=== PATIENT | female | born 1940 | race Caucasian/White ===

== ENCOUNTER 2017-11-15 12:24 | Inpatient (IN) | payer MEDICARE ==
[~2017-11-15] VITALS: Ht 157.4 cm; Wt 57.2 kg
--- NOTE | ~2017-11-15 | PR ---
[place], [place] PROGRESS NOTE NAME: LO NEVES UNIT #: [id number] ROOM: 316 DOCTOR: OVIDIO TAFOYA MD BIRTHDATE: [birth year] DOS: 11/21/2017 CHIEF COMPLAINT: "The patient just shook her head." SUMMARY OF THE VISIT: The patient was attempted to be interviewed as she was resting quietly in bed. I made multiple attempts to engage her and the most I was able to get was her to shake her head no. Nurses report that she has been episodically communicative and at times has been what appears to be deliberately not talking. She is not necessarily eating or drinking well, although her complete metabolic panel is fairly unremarkable. MENTAL STATUS: It is limited due to her lack of participation. She does appear somewhat depressed and more despondent. PLAN: I will go ahead and discontinue her oral Risperdal as she has been given the Invega Sustenna, renew Ativan p.r.n. in case she requires, start her on Remeron as an antidepressant. Engage in individual and alba milieu activity, returning to the least restrictive environment when stable. OVIDIO TAFOYA MD CM:PNTRANS [id number] OVIDIO TAFOYA MD 11/21/17 1021 interface
--- NOTE | ~2017-11-15 | PR ---
[place], [place] PROGRESS NOTE NAME: LO NEVES UNIT #: [id number] ROOM: 316 DOCTOR: BOBBI PONCE MD BIRTHDATE: [birth year] DOS: 11/19/2017 SUBJECTIVE: The patient seen and spoke with the staff. Per staff, the patient is very disorganized. Her UA came back positive with E. coli. Medical team is following her. She is not eating properly also. The patient was in her room in a Beth chair. She was smiling and talking nonsensical. She said that she is doing very good, not seems to be in any distress. She was not aware of her surrounding. MENTAL STATUS EXAMINATION: The patient was pleasant and cooperative. Described her mood as "very good." Affect was bright, smiling. Thought processes with confabulation. She denied auditory or visual hallucination. No delusion or paranoia noted. Insight and judgment impaired. PLAN: 1. Continue current medication and care. 2. Continue redirection. 3. Medical team is following for her infection issues. BOBBI PONCE MD CM:PNTRANS 50 [phone] BOBBI PONCE MD 11/19/172105 interface
--- NOTE | ~2017-11-15 | PR ---
[place], [place] PROGRESS NOTE NAME: LO NEVES UNIT #: [id number] ROOM: 316 DOCTOR: OVIDIO TAFOYA MD BIRTHDATE: [birth year] DOS: 11/20/2017 CHIEF COMPLAINT: The patient was so somnolent she only opened her eyes and did not speak. SUMMARY OF THE VISIT: The patient was resting quietly in bed. I on multiple occasions attempted to arouse her. She did open her eyes one time, but did not speak to me. The patient did receive intramuscular Geodon in the wee hours of the morning due to severe mood lability and verbal and physical combativeness. While the medication did work, subsequently there has been a level of somnolence now. Nurses report that her behavior has continued to be labile. She has bouts of episodic agitation and is not necessarily consistently compliant with her care. MENTAL STATUS: It is limited now due to her overall level of somnolence. PLAN: I will go ahead and maximize her Exelon patch from 9.5 mg daily to 13.3 mg daily in an effort to improve or maintain ADLs, behavior and cognition. I will move up her secondary loading dose of Invega Sustenna 156 mg IM for 11/22 rather than 11/23, trying to get blood levels that are more therapeutic to decrease some of this mood lability and combativeness. We will attempt to engage in individual and alba milieu activity, returning to the least restrictive environment when psychiatrically stable. OVIDIO TAFOYA MD CM:PNTRANS [id number] OVIDIO TAFOYA MD 11/20/17 0908 interface
--- NOTE | ~2017-11-15 | PR ---
[place], [place] PROGRESS NOTE NAME: LO NEVES UNIT #: [id number] ROOM: 316 DOCTOR: OVIDIO TAFOYA MD BIRTHDATE: [birth year] DOS: 11/22/2017 CHIEF COMPLAINT: "Oh yes hello there, how are you." SUMMARY OF THE VISIT: The patient was interviewed as she was resting in bed. She was eating most of her breakfast tray with assistance from a male bung sewer. She engaged in conversation that was rather disjointed and fragmented, but she was pleasant and smiled through the entire conversation. She was much more engaging than she had been yesterday and seemed a little bit more alert and pleasant than she has been for some time. She seems to be tolerating the current medication regimen well and I see no sedation, somnolence, extrapyramidal symptoms or tardive dyskinesia. MENTAL STATUS: She is alert and oriented to self only. It is unclear if she realizes she is in the hospital let alone [facility] and she is certainly not oriented to time. Her responses are short, simple, pleasant, but very disjointed and fragmented, often times nonsensical. She does process extremely slowly. Short term memory is exceedingly poor. PLAN: I will renew her p.r.n. Ativan in case she requires intervention. It does not appear that the Invega Sustenna secondary loading dose of 156 mg IM will be available today, so I will cancel this and plan on attempting to do the loading on November 23. We will continue to engage her in individual and alba milieu activity with the ultimate plan to return to the least restrictive environment when psychiatrically stable. OVIDIO TAFOYA MD CM:PNTRANS [id number] OVIDIO TAFOYA MD 11/22/17 1010 interface
--- NOTE | ~2017-11-15 | PR ---
[place], [place] PROGRESS NOTE NAME: LO NEVES UNIT #: [id number] ROOM: 316 DOCTOR: BOBBI PONCE MD BIRTHDATE: [birth year] DOS: 11/25/2017 SUBJECTIVE: The patient seen and spoke with the staff. Per staff, no behavioral problems or issues. She is doing better. She is eating also but she is pleasantly confused. The patient was in her room in the Beth chair. She was not in any distress. She started smiling. She looks very happy. She said that she is doing fine, but then went on to talk that does not make any sense. She was not in any distress. MENTAL STATUS EXAMINATION: The patient was pleasant and cooperative. She was alert, but not oriented to date and month and the year. She described her mood as "fine." Affect was mood congruent, happier. Thought processes with confabulation. She denied auditory or visual hallucination. No overt delusions or paranoia noted. She is not a threat to herself or anyone else. Insight and judgment impaired. PLAN: 1. Continue current medication and care. 2. Continue redirection. 3. Supportive care. BOBBI PONCE MD CM:PNTRANS [id number] BOBBI PONCE MD 11/25/17 5039 interface
--- NOTE | ~2017-11-15 | PR ---
[place], [place] PROGRESS NOTE NAME: LO NEVES UNIT #: [id number] ROOM: 316 DOCTOR: BOBBI PONCE MD BIRTHDATE: [birth year] DOS: 11/26/2017 SUBJECTIVE: The patient seen and spoke with the staff. Per staff, the patient is doing good, taking her medication and also eating well. Per staff, reportedly the patient is eating on her own. The patient was seen in her room. She was in the day area. She looks pretty happy. She is smiled at me and said that she is doing well. She mentioned that this is December but then went on to tangent and incoherent talks. MENTAL STATUS EXAMINATION: Pleasant, cooperative. Described his mood as "good." Affect was mood congruent. Thought processes with confabulation. She denied auditory or visual hallucination. No overt delusion or paranoia noted. She denied suicidal ideation, intent or plan. She also denied homicidal ideation, intent or plan. Insight and judgment impaired. PLAN: 1. Continue current medication and care. 2. Continue redirection. 3. Supportive care. BOBBI PONCE MD CM:PNTRANS 52 [phone] BOBBI PONCE MD 11/26/172238 interface
--- NOTE | ~2017-11-15 | PR ---
[place], [place] PROGRESS NOTE NAME: LO NEVES UNIT #: [id number] ROOM: 316 DOCTOR: OVIDIO TAFOYA MD BIRTHDATE: [birth year] DOS: 11/17/2017 CHIEF COMPLAINT: "Oh yes that is over there. It is okay. I don't need anything." SUMMARY OF THE VISIT: The patient was interviewed as she was sitting in the dining area, trying to eat breakfast. She had only about a quarter of her breakfast touched and stated she did not want anymore. She attempted to engage in superficial conversation, but at times, it drifted into nonsensical gibberish. She smiled readily and nodded in approval. Nurses report that she is episodically compliant and noncompliant with her medicines, but they have gotten several doses of the Risperdal M-Tab in her and she has tolerated it well without any apparent extrapyramidal symptoms, tardive dyskinesia, sedation or somnolence. She still though is episodically agitated and combative. MENTAL STATUS: She is alert and oriented to self. It is unclear and doubtful if she knows she is in the hospital and she is certainly not oriented to time. Mood still is labile. Affect inappropriate. Speech rate and pattern is disjointed and disconnected. She does process slowly and short term memory is exceedingly poor. PLAN: I will go ahead and increase the Exelon patch from 4.6 to 9.5 mg a day, targeting a 13.3-mg daily dose. Her vitamin D level on admission was subtherapeutic at 25.5, so I will augment with vitamin D 50,000 International Units weekly. I will load with Invega Sustenna 156 mg IM on 11/18/2017 and reload with a secondary dose of 156 on 11/23/2017, engage in individual and alba milieu activity, returning to the least restrictive environment when stable. OVIDIO TAFOYA MD CM:PNTRANS 7 01 OVIDIO TAFOYA MD 11/17/172058 interface
--- NOTE | ~2017-11-15 | PR ---
[place], [place] PROGRESS NOTE NAME: LO NEVES UNIT #: [id number] ROOM: 316 DOCTOR: OVIDIO TAFOYA MD BIRTHDATE: [birth year] DOS: 11/23/2017 CHIEF COMPLAINT: "Oh good morning. No "I don't want breakfast." SUMMARY OF THE VISIT: The patient was interviewed as she was resting quietly in bed. She did engage in brief conversation. She smiled readily, but did not turn to make good eye contact. Nurses report that she has been more compliant with medications and with eating and her intake of fluids is also improved. She has tolerated the current medication regimen well. MENTAL STATUS: She is alert and oriented to self, possibly hospital, but not place. Mood does seem to be fairly euthymic. Affect is bright and pleasant. There is no jody or hypomania. There is no overt agitation or aggression. There are no psychotic symptoms noted. Memory remains poor. PLAN: We will continue her current psychotropic regimen, attempt to reload her with Invega Sustenna and then monitor over the next 24 hours for both benefits and the possibility of side effects. Looking, especially for any extrapyramidal symptoms. We will discharge then to the least restrictive environment when psychiatrically stable. OVIDIO TAFOYA MD CM:PNTRANS [id number] OVIDIO TAFOYA MD 11/23/17 0938 interface
--- NOTE | ~2017-11-15 | WRIGHTHP ---
[place], [place] PATIENT HISTORY AND PHYSICAL EXAM NAME: LO NEVES UNIT #: [id number] ROOM: 316 DOCTOR: OVIDIO TAFOYA MD BIRTHDATE: [birth year] DOS: 11/16/2017 INITIAL PSYCHIATRIC EVALUATION CHIEF COMPLAINT: "Oh, hi there, how are you today?" HISTORY OF PRESENT ILLNESS: This is a 77-year-old white female who resides at [facility]. The patient is admitted now to the [facility] due to increased verbal and physical aggression. The patient has been increasingly combative and resistive to care. These behaviors have been escalating since May 2017. She has now become completely noncompliant with all aspects of care, refusing her medications both medical and psychiatric. When attempts are made to redirect her, she has been hitting, kicking and scratching staff. Despite attempts to alter medications, the patient has been increasingly more out of control. The patient also has been responding to visual hallucinations, stating that there are bugs in the room and that the bugs were crawling on her legs causing her to be very agitated and scratching herself. She is admitted now to rule out organic factors, to stabilize on medication, to engage in individual and alba milieu activity, returning to the least restrictive environment when psychiatrically stable. PAST MEDICAL HISTORY: Remarkable for congestive heart failure, hypothyroidism, CVA, hypertension and a history of Alzheimer's dementia. MENTAL STATUS: The patient is alert and oriented to self, possibly place, although it is doubtful, not to time. Mood for the most part was euthymic. Her responses were on target half of the time and at other times she responded nonsensically. Her speech rate and pattern were within normal limits. There was no significant hypomania or jody. She did seem to be somewhat delusional. There was no agitation; however, directed towards me. She did process slowly and at times was not able to process simple commands. Short term memory is exceedingly poor. DIAGNOSIS: Brief psychotic disorder. PLAN: At this point, I will try to simplify her medication regimen as much as possible. I will discontinue her multivitamin, her vitamin D, her thiamine, her Depakote, her Colace and her Aricept. In its place, I will start Exelon patch, which at least we can attempt to get on her back without having to worry about her taking oral medication. We will order Risperdal M-Tab 1 mg b.i.d. to break the psychosis and stabilize her mood lability. We will attempt to engage her in individual and alba milieu activity with the ultimate plan to return to the least restrictive environment when psychiatrically stable. [place], [place] PATIENT HISTORY AND PHYSICAL EXAM NAME: LO NEVES UNIT #: [id number] ROOM: 316 DOCTOR: OVIDIO TAFOYA MD BIRTHDATE: [birth year] OVIDIO TAFOYA MD CM:HISPHYS:PATIENT HISTORY AND PHYSICAL EXAMINATION [id number] OVIDIO TAFOYA MD 11/16/17 1050 interface
--- NOTE | ~2017-11-15 | PR ---
[place], [place] PROGRESS NOTE NAME: LO NEVES UNIT #: [id number] ROOM: 316 DOCTOR: BOBBI PONCE MD BIRTHDATE: [birth year] DOS: 11/18/2017 SUBJECTIVE: The patient seen and spoke with the staff. Per staff, patient is not eating and drinking well, it is very sporadic, that is the same in terms of her medication also. Reportedly, she had UTI and currently getting antibiotic. The patient was in the Beth chair. She was smiling, talking nonsensical. She was listening to the music, seems to be very pleasant, not in any acute distress. She was not able to answer my question in any meaningful way. MENTAL STATUS EXAMINATION: The patient was pleasant and cooperative. She was alert, but not oriented to day, date, month and year. She described her mood as "okay." Affect was brighter broad range. Thought process disorganized. Denied auditory or visual hallucination. She denied any suicidal ideation, intent or plan. She also denied homicidal ideation, intent or plan. Insight and judgment impaired. ASSESSMENT: 1. Brief psychotic disorder. 2. Dementia with psychotic feature. PLAN: 1. Continue current medication and care. 2. We will start her I's and O's. 3. Continue redirection. 4. Encourage p.o. intake. BOBBI PONCE MD CM:PNTRANS [phone] BOBBI PONCE MD 11/18/17 232 interface
--- NOTE | ~2017-11-15 | DS ---
[place], [place] DISCHARGE SUMMARY NAME: OL NEVES UNIT #: [id number] ROOM: 316 DOCTOR: OVIDIO TAFOYA MD BIRTHDATE: [birth year] DOS: 11/27/2017 CHIEF COMPLAINT: "Oh Hi there, how are you today." HISTORY OF PRESENT ILLNESS: This is a 77-year-old white female who resides at [facility]. The patient is now admitted to the [facility] unit due to increased verbal and physical aggression. The patient has become increasingly combative and resistive to care. She has been escalating since May 2017. She is now completely noncompliant with all aspects of care, refusing all medications, both medical and psychiatric. She has been refusing to eat or drink. She has not attended to her ADLs. Attempts to redirect have led to her hitting, kicking and scratching at staff. Attempts to alter medications have been unsuccessful and she has become increasingly more out of control representing a significant risk of harm to self and others. The patient has also been responding to visual hallucinations stating that there are bugs in her room and that the bugs were crawling on her legs. She is admitted now to rule out organic factors, to stabilize on medication, to engage in individual and alba milieu activity, discharging then to the least restrictive environment when psychiatrically stable. PAST MEDICAL HISTORY: Remarkable for congestive heart failure, hypothyroidism, history of a CVA, hypertension and Alzheimer's dementia. SUMMARY OF HOSPITAL COURSE: The patient was admitted to the unit where I made an effort to simplify her medication regimen discontinuing her multivitamin, her vitamin D, her thiamine, her Depakote, her Colace and her Aricept. In place I started her on Exelon patch, did initially start her on Risperdal M-Tab for compliance issues. Did find her to be significantly depressed, so did eventually restart her on Remeron 15 mg at bedtime. Initially, she was episodically compliant with the medications, but as she began to be compliant, her compliance level sabine. The patient started to eat and drink. She did start to attend to her ADLs better. The patient was diagnosed with a UTI simultaneously upon admission, which was treated. As both of these issues improved, so did her mental status. The patient had improved sufficiently by 11/27 to return to a long-term care facility. Family did suggest and the facility agreed that [facility]'s locked Alzheimer's unit would be a more appropriate placement for her. I will follow her upon her admission there. MENTAL STATUS AT DISCHARGE: The patient is alert and oriented to self only. She is certainly not oriented to place or time. Upon approach, she is bright and pleasant and is very engaging in conversation albeit very superficial. Her responses tended to be short and simple, vague at times. There was no agitation or aggression; however, at no point in time has she attempted to hit, kick or spit or scratch at me. There are no symptoms consistent of hypomania or jody. Likewise, there were no overt auditory or visual hallucinations. No paranoia, no delusions. She does process conversation exceedingly slow and short term memory is also very poor. FINAL DIAGNOSES UPON DISCHARGE: Major depression, recurrent with psychotic features and Alzheimer's dementia. [place], [place] DISCHARGE SUMMARY NAME: LO NEVES UNIT #: [id number] ROOM: 316 DOCTOR: OVIDIO TAFOYA MD BIRTHDATE: [birth year] DISPOSITION: The patient is to be admitted to [facility]. All of her prescriptions have been E-scribed to [facility] except for vitamin D, which will be sent with her. I will follow her upon her admission to [facility]. OVIDIO TAFOYA MD CM:JUANARG [id number] OVIDIO TAFOYA MD 11/27/17 0959 interface
--- NOTE | ~2017-11-15 | PR ---
[place], [place] PROGRESS NOTE NAME: LO NEVES UNIT #: [id number] ROOM: 316 DOCTOR: BOBBI PONCE MD BIRTHDATE: [birth year] DOS: 11/24/2017 SUBJECTIVE: The patient seen and spoke with the staff. Per staff, the patient is doing okay. No behavioral problems or issues, but she is not eating and not finishing her whole meal. The patient was pleasant and cooperative. She was in her bed. She reports doing okay. When I asked her about why she is not eating, she said that she will eat from now on. She looks pretty flat and constricted to me. She was not in any distress. MENTAL STATUS EXAMINATION: The patient was pleasant and cooperative. Described her mood as "okay." Affect was constricted, flat. Thought processes with confabulation. She denied auditory or visual hallucination. No delusion or paranoia noted. She denied suicidal ideation, intent or plan. She also denied homicidal ideation, intent or plan. PLAN: 1. Continue current medication and care. 2. Continue redirection. 3. Supportive care. BOBBI PONCE MD CM:PNTRANS [phone] BOBBI PONCE MD 11/25/17 0016 interface
[2017-11-15] MEDS ORDERED: B-1100 M1 PO (15:22)
[2017-11-15] MEDS ORDERED: ARICEPT10 M1 PO (15:23)
[2017-11-15] MEDS ORDERED: MICROZIDE12.5 M1 PO (15:25)
[2017-11-15] MEDS ORDERED: Synthroid,Levo50 MCG PO (15:26)
[2017-11-15] MEDS ORDERED: ALTACE2.5 M1 PO (15:26)
[2017-11-15] MEDS ORDERED: TIMOLOL MALEATE5 M2 OPH (15:28)
[2017-11-15] MEDS ORDERED: NAMENDA10 MG PO (15:28)
[2017-11-15] MEDS ORDERED: Depakote Sprin125 MG PO (15:29)
[2017-11-15] MEDS ORDERED: COLACE100 MG PO (15:30)
[2017-11-15] MEDS ORDERED: MULTIVITAMINS1 EAC5 PO (15:30)
[2017-11-15] MEDS ORDERED: ASPIRIN CHEWABL81 MG PO (15:30)
[2017-11-15] MEDS ORDERED: VITAMIN D-32000 UNIT PO (15:31)
[2017-11-15 19:54] VITALS: BP 126/77
[2017-11-15 20:32] VITALS: BP 114/74
[2017-11-15 22:31] LABS: BILIRUBIN NEGATIVE (NEGATIVE); BLOOD TRACE-INTACT (NEGATIVE); CLARITY SL CLOUDY (CLEAR); COLOR YELLOW (YELLOW); GLUCOSE NEGATIVE (NEGATIVE); KETONE NEGATIVE (NEGATIVE); LEUKO ESTERASE NEGATIVE (NEGATIVE); NITRITE POSITIVE (NEGATIVE); PH 6.5 (5.0-9.0); UROBILINOGEN 0.2 E.U./dl (0.2-1.0)
[2017-11-15 22:40] LABS: BACTERIA 4+; WBC 0-2 wbc/hpf (0-5)
[2017-11-16 07:20] LABS: BASO % 0.8 % (0.0-1.0); EOS # 0.2 10*3/uL (0.0-0.4); EOS % 3.6 % (1.0-4.0); HEMATOCRIT 39.1 % (37.0-47.0); LYMPH # 1.5 10*3/uL (1.3-4.4); LYMPH % 30.4 % (27.0-41.0); MEAN CELL VOLUME 90.1 fl (81.0-99.0); MEAN CORPUSCULAR HGB CONC 33.2 g/dl (33.0-37.0); MEAN PLATELET VOLUME 9.7 fl (9.6-12.3); MONO # 0.6 10*3/uL (0.1-1.0); MONO % 11.3 % (3.0-9.0); NEUT # 2.7 10*3/uL (2.3-7.9); NEUT % 53.7 % (47.0-73.0); PLATELET COUNT AUTOMATED 276 10*3/uL (130-400); RED BLOOD COUNT 4.34 10*6/uL (4.10-5.10)
[2017-11-16 07:55] LABS: ALBUMIN 2.8 gm/dl (3.1-4.5); ALKALINE PHOSPHATASE 79 U/L (45-117); BUN 16 mg/dl (7-24); CHLORIDE 102 mmol/L (98-107); CHOLESTEROL 197 mg/dL (<200); CREATININE 0.59 mg/dL (0.55-1.02); HDL CHOLESTEROL 48 mg/dl (40-60); LDL CHOLESTEROL 125 mg/dL (9-159); POTASSIUM 4.1 mmol/L (3.5-5.1); SGOT/AST 11 IU/L (3-35); SGPT/ALT 15 U/L (12-78); SODIUM 140 mmol/L (136-145); TOTAL PROTEIN 6.5 gm/dL (6.4-8.2); TRIGLYCERIDES 118 mg/dl (<150); VLDL CHOLESTEROL 24 mg/dL (6-40)
[2017-11-16 08:00] VITALS: BP 140/68
[2017-11-16 10:39] LABS: VITAMIN D, 25-HYDROXY 25.5 ng/mL (30-100)
[2017-11-16 19:46] VITALS: BP 145/60
[2017-11-17 07:36] VITALS: BP 131/60
[2017-11-17 20:03] VITALS: BP 121/72
[2017-11-18 08:38] VITALS: BP 123/62
[2017-11-18 20:29] VITALS: BP 118/78
[2017-11-19 07:12] LABS: BASO % 0.5 % (0.0-1.0); EOS # 0.1 10*3/uL (0.0-0.4); EOS % 2.2 % (1.0-4.0); HEMATOCRIT 44.2 % (37.0-47.0); HEMOGLOBIN 14.5 g/dl (12.0-16.0); LYMPH # 1.6 10*3/uL (1.3-4.4); LYMPH % 24.4 % (27.0-41.0); MEAN CELL VOLUME 91.9 fl (81.0-99.0); MEAN CORPUSCULAR HGB 30.1 pg (27.0-31.0); MEAN CORPUSCULAR HGB CONC 32.8 g/dl (33.0-37.0); MEAN PLATELET VOLUME 9.9 fl (9.6-12.3); MONO # 0.7 10*3/uL (0.1-1.0); MONO % 11.5 % (3.0-9.0); NEUT # 3.9 10*3/uL (2.3-7.9); NEUT % 61.2 % (47.0-73.0); PLATELET COUNT AUTOMATED 288 10*3/uL (130-400); RED BLOOD COUNT 4.81 10*6/uL (4.10-5.10); RED CELL DISTRI WIDTH 14.1 % (0-14.5); WHITE BLOOD COUNT 6.4 10*3/uL (4.8-10.8)
[2017-11-19 07:29] LABS: ALBUMIN 3.2 gm/dl (3.1-4.5); BUN 15 mg/dl (7-24); CHLORIDE 101 mmol/L (98-107); CREATININE 0.58 mg/dL (0.55-1.02); PHOSPHOROUS 3.9 mg/dL (2.5-4.9); POTASSIUM 4.3 mmol/L (3.5-5.1); SGOT/AST 15 IU/L (3-35); SGPT/ALT 23 U/L (12-78); SODIUM 139 mmol/L (136-145); TOTAL PROTEIN 6.9 gm/dL (6.4-8.2)
[2017-11-19 07:30] LABS: ALKALINE PHOSPHATASE 88 U/L (45-117)
[2017-11-19 08:24] VITALS: BP 125/83
[2017-11-19 20:00] VITALS: BP 119/73
[2017-11-20 07:33] VITALS: BP 123/68
[2017-11-20 20:34] VITALS: BP 102/60
[2017-11-21 07:28] VITALS: BP 122/64
[2017-11-21 08:36] LABS: ALBUMIN 2.8 gm/dl (3.1-4.5); ALKALINE PHOSPHATASE 86 U/L (45-117); BUN 15 mg/dl (7-24); CHLORIDE 102 mmol/L (98-107); CREATININE 0.54 mg/dL (0.55-1.02); POTASSIUM 4.3 mmol/L (3.5-5.1); SGOT/AST 14 IU/L (3-35); SGPT/ALT 16 U/L (12-78); SODIUM 135 mmol/L (136-145); TOTAL PROTEIN 6.4 gm/dL (6.4-8.2)
[2017-11-21 20:00] VITALS: BP 116/60
[2017-11-22 07:16] VITALS: BP 118/74
[2017-11-22 20:00] VITALS: BP 134/90
[2017-11-23 08:09] VITALS: BP 121/76
[2017-11-23 20:00] VITALS: BP 145/86
[2017-11-24 09:38] VITALS: BP 141/84
[2017-11-24] MEDS ORDERED: REMERON SOLTAB15 MG PO (12:29)
[2017-11-24 20:13] VITALS: BP 136/71
[2017-11-25 08:06] VITALS: BP 146/73
[2017-11-25 20:00] VITALS: BP 140/70
[2017-11-26 08:07] VITALS: BP 142/67
[2017-11-26 20:16] VITALS: BP 148/79
[2017-11-27 08:11] VITALS: BP 146/72
[2017-11-27] MEDS ORDERED: MIRTAZAPINE15 M1 PO (09:27)
[2017-11-27] MEDS ORDERED: Vitamin D PO (09:27)
[2017-11-27] MEDS ORDERED: MEMANTINE HCL10 MG PO (09:27)
[2017-11-27] MEDS ORDERED: EXELON13.3 MG/21 T (09:27)
[2017-11-27] MEDS ORDERED: NITROFURANTOIN100 M9 PO (10:51)
[2017-11-27] MEDS ORDERED: Synthroid,Levo50 MCG PO (10:51)
[2017-11-27] MEDS ORDERED: TIMOLOL 5 ML5 ML OPH (10:51)
[2017-11-27] MEDS ORDERED: LISINOPRIL10 M1 PO (10:51)
[2017-11-27] MEDS ORDERED: HYDR12.5C PO (10:51)
== END 2017-11-27 15:43 | DRG 885 ==
LOC: 3N 12:24
PROVIDERS: Emergency Medicine; Psychiatry & Neurology Psychiatry
DX: F33.3 Major depressive disorder, recurrent, severe with psychotic symptoms (principal); G30.9 Alzheimer's disease, unspecified; F02.81 Dementia in other diseases classified elsewhere, unspecified severity, with behavioral disturbance; I11.0 Hypertensive heart disease with heart failure; I50.32 Chronic diastolic (congestive) heart failure; N39.0 Urinary tract infection, site not specified; F23 Brief psychotic disorder; A49.9 Bacterial infection, unspecified; Z16.12 Extended spectrum beta lactamase (ESBL) resistance; E03.9 Hypothyroidism, unspecified; Z86.73 Personal history of transient ischemic attack (TIA), and cerebral infarction without residual deficits; Z79.82 Long term (current) use of aspirin; Z79.899 Other long term (current) drug therapy; Z91.14 Patient's other noncompliance with medication regimen; Z66 Do not resuscitate; Z51.5 Encounter for palliative care

== ENCOUNTER 2018-09-27 15:17 | Inpatient (IN) | payer MEDICARE, OTHER ==
[~2018-09-27] VITALS: Ht 170.1 cm; Wt 59.0 kg
--- NOTE | ~2018-09-27 | PR ---
[place], [place] PROGRESS NOTE NAME: LO NEVES UNIT #: [id number] ROOM: 317 DOCTOR: OVIDIO TAFOYA MD BIRTHDATE: [birth year] DOS: 10/03/2018 CHIEF COMPLAINT: "I'm ready for it." SUMMARY OF THE VISIT: The patient was interviewed as she was sitting in her Beth chair in the dining area. As I approached, she reports that she was ready for it. When I asked her what, she said "to have a good day." She smiled and flirted with me, but was pleasant. She was not inappropriate in any way; however, nurses report some sexually inappropriate behavior and comments persist and she continues to be rather impulsive in her responses. MENTAL STATUS: She is alert and oriented to person, unclear place, certainly not time. Mood still is labile. Affect at times is inappropriate. There are no psychotic symptoms. There is some hypomanic type symptoms. Memory for short term events continues to be poor. PLAN: I will add Risperdal at a very low dose of 0.5 mg twice daily to decrease some of this impulsive behavior. I will renew her p.r.n. Ativan should she require intervention. Continue to engage in individual and alba milieu activity, returning to the least restrictive environment when psychiatrically stable. OVIDIO TAFOYA MD CM:PNTRANS [id number] [id number] OVIDIO TAFOYA MD 10/04/18 0106 interface
--- NOTE | ~2018-09-27 | PR ---
[place], [place] PROGRESS NOTE NAME: LO NEVES UNIT #: [id number] ROOM: 317 DOCTOR: OVIDIO TAFOYA MD BIRTHDATE: [birth year] DOS: 10/05/2018 INTERVAL NOTE CHIEF COMPLAINT: "Oh, I am ready for breakfast, thank you so much for asking." SUMMARY OF THE VISIT: The patient was interviewed as she had just received her breakfast tray. She was up, alert and engaged in conversation. This is in high contrast to the last several days when she has been dozing in her chair. The reduction in her medication regimen does seem to be successful in making her much more awake and interactive. She voiced no complaint and engaged in pleasant conversation with me. Nurses report she is still somewhat flirtatious with men, but has not been sexually inappropriate and her amount of mood lability and agitation has lessened considerably. Outwardly, she is tolerating the medication regimen well without sedation, somnolence, extrapyramidal symptoms or tardive dyskinesia. MENTAL STATUS: She remains alert and oriented to person, possibly place, not to time. Mood does seem to be strongly trending towards euthymia. Affect is much more appropriate. There is no jody, hypomania or gross psychosis. Short-term memory is very problematic. PLAN: I will continue her current psychotropic regimen, monitor for risk, benefit, engage in individual and alba milieu activity, returning to the least restrictive environment when psychiatrically stable. OVIDIO TAFOYA MD CM:PNTRANS OVIDIO TAFOYA MD 10/05/18 0938 interface
--- NOTE | ~2018-09-27 | PR ---
[place], [place] PROGRESS NOTE NAME: LO NEVES UNIT #: [id number] ROOM: 317 DOCTOR: OVIDIO TAFOYA MD BIRTHDATE: [birth year] DOS: 10/02/2018 INTERVAL NOTE CHIEF COMPLAINT: The patient was somnolent and could not engage in conversation." SUMMARY OF THE VISIT: The patient was attempted to be interviewed as she was sitting in a Beth chair in the dining area. I called out her name on multiple occasions, put my hand gently on her shoulder to attempt to arouse her and the most I got was a moan or grunt. Nurses report that this is very consistent for her and that most mornings she takes a while to wake up, but is able to engage in group activities and interaction as the day goes on. Unfortunately, as the day progresses, the patient becomes verbally and physically aggressive and has kicked, spit and hit staff and attempted to do the same towards other patients. MENTAL STATUS: Limited by her overall level of somnolence. PLAN: I will discontinue her Vistaril that is being utilized at bedtime to prevent this hangover phenomenon from happening. I will likewise increase her Remeron from 15 to 30 mg at bedtime trying to lessen any sanitation laborer sedation. I will maximize at her Namenda dose bring it to 10 mg b.i.d. as it augments the effectiveness of the Exelon. We will continue to support and monitor, engage in individual and alba milieu activity, returning then to the least restrictive environment when psychiatrically stable. OVIDIO TAFOYA MD CM:PNTRANS [id number] OVIDIO TAFOYA MD 10/03/18 0652 interface
--- NOTE | ~2018-09-27 | PR ---
[place], [place] PROGRESS NOTE NAME: LO NEVES UNIT #: [id number] ROOM: 317 DOCTOR: OVIDIO TAFOYA MD BIRTHDATE: [birth year] DOS: 10/01/2018 CHIEF COMPLAINT: "Morning." SUMMARY OF THE VISIT: The patient was interviewed as she was resting quietly in a Beth chair in the dining area. She was sleeping, but did awake upon approach. She engaged in brief superficial conversation, voicing no complaints. She slept well, ate well and it was not in any pain or discomfort. She was pleasant and cooperative. There was no agitation or aggression. 3 There was no side effects other than some mild somnolence noted this morning. MENTAL STATUS: She is alert and oriented to person, unclear place, certainly not time. Mood does seem to be trending towards euthymia. Affect is more appropriate. There is no jody or hypomania. There is no gross psychosis. Short term memory continues to be problematic. PLAN: Her valproic acid level is therapeutic at 97.2. I will monitor for risks, benefits, and other side effects. I will increase her Namenda from 5 mg a day to 5 mg twice a day, augmenting the effectiveness of the Exelon. We will engage in individual and alba milieu activity, returning to the least restrictive environment when psychiatrically stable. OVIDIO TAFOYA MD CM:PNTRANS [id number] OVIDIO TAFOYA MD 10/01/18 1121 interface
--- NOTE | ~2018-09-27 | PR ---
[place], [place] PROGRESS NOTE NAME: LO NEVES UNIT #: [id number] ROOM: 317 DOCTOR: OVIDIO TAFOYA MD BIRTHDATE: [birth year] DOS: 10/08/2018 INTERVAL NOTE CHIEF COMPLAINT: "Oh, hi there." SUMMARY OF THE VISIT: The patient was interviewed as she was sitting in a Beth chair in the dining area. She engaged readily in brief conversation. She was not inappropriate in any way. Her responses were short and simple. She voiced no complaint. There was no sedation or somnolence noted. MENTAL STATUS: She is alert and oriented to person, possibly place, not to time. Mood seems fairly euthymic. There is no jody or hypomania. There are no gross psychotic symptoms. Memory for the most part though is very problematic. PLAN: I will go ahead and increase her Risperdal to 0.5 mg in the morning and 1 mg at night. Nurses report that although she had a relatively decent interview with me, she has been very sexually inappropriate, making very elude and profane comments and is very sexually preoccupied. We will go ahead and monitor and support, engage in individual and alba milieu activity, returning to the least restrictive environment when psychiatrically stable. OVIDIO TAFOYA MD CM:PNTRANS 0923 OVIDIO TAFOYA MD 10/08/18 0932 interface
--- NOTE | ~2018-09-27 | PR ---
[place], [place] PROGRESS NOTE NAME: LO NEVES UNIT #: [id number] ROOM: 317 DOCTOR: VITOR XIONG CNP BIRTHDATE: [birth year] DOS: 09/29/2018 SUMMARY OF THE VISIT: The patient was interviewed as she lays in her recliner chair in the dining room. The patient refused to open her eyes for me. She provided a few short one word answers, otherwise did not engage in conversation at all with me. Staff reports that the patient continues to be agitated and irritable. She has been continuing to refuse medications. She did spit medications at the staff yesterday. She refused her medications this morning. Her p.o. intake has been poor. MENTAL STATUS EXAMINATION: She is alert and oriented to herself. No overt jody or hypomania noted. No delusions or paranoia noted. No auditory or visual hallucinations noted. Her mood remains irritable. Affect is congruent with mood. PLAN: I will change the patient's Depakote Sprinkle to Depakene syrup. I will try to encourage the patient to take her medications with fluids. We will continue to encourage the patient to engage in individual and alba milieu activity. We will continue fall and safety precautions and will plan to return the patient to the least restrictive environment when she is considered psychiatrically stable. Vitor Xiong CNP CM:PNTRANS [id number] VITOR XIONG CNP 09/30/18 0325 interface
--- NOTE | ~2018-09-27 | PR ---
[place], [place] PROGRESS NOTE NAME: LO NEVES UNIT #: [id number] ROOM: 317 DOCTOR: VITOR XIONG CNP BIRTHDATE: [birth year] DOS: 09/30/2018 CHIEF COMPLAINT: "No honey." SUMMARY OF THE VISIT: The patient was interviewed as she sat in the recliner chair in the dining room. The patient did not verbalize with me. She would not open her eyes for me. Staff does report that the patient did take her medications yesterday and this morning since changing the Depakote from sprinkles to syrup. They were also able to get her to take her Remeron last night. The patient slept about 2 hours. She is napping during the day, but it is felt that this is due to her not sleeping at night. She continues to be agitated at times. MENTAL STATUS EXAMINATION: The patient is alert and oriented to herself. No jody or hypomania noted. No delusions or paranoia noted. No auditory or visual hallucinations noted. Her mood is calm and affect congruent with mood at this time. No agitation or aggression noted. PLAN: Continue medications as prescribed. We will start Vistaril syrup 25 mg at bedtime to help with agitation and aid in sleep. VPA level is ordered for tomorrow morning. We will continue to encourage the patient to engage in individual and alba milieu activity. Continue fall and safety precautions. Plan to return the patient to the least restrictive environment once she is considered psychiatrically stable. Vitor Xiong CNP CM:PNTRANS [id number] IVTOR XIONG CNP 09/30/18 1158 interface
--- NOTE | ~2018-09-27 | DS ---
[place], [place] DISCHARGE SUMMARY NAME: LO NEVES UNIT #: [id number] ROOM: 317 DOCTOR: OVIDIO CHILDS MD BIRTHDATE: [birth year] DOS: 10/09/2018 CHIEF COMPLAINT: "Oh there you are. I would like to meet Dr. Childs." HISTORY OF PRESENT ILLNESS: This is an 78-year-old white female known to me from her previous stay here at the [facility] as well as her stay at [facility]. The patient is readmitted now with increased agitation with both verbal and physical aggression. The patient has been hitting, kicking, biting and spitting at staff and other residents there. She has been noncompliant with all of her medications as well as having very poor oral intake. She has poor safety awareness and has attempted to get up out of her chair or elope from the facility on multiple occasions. Additionally, the patient has become very sexually preoccupied and almost sexually aggressive towards male residents. Because of these behaviors, she is putting herself and others at substantial risk of harm. It was felt that an inpatient stabilization was warranted at this time, to engage in individual and alba milieu activity, to rule out organic factors and to stabilize on the correct medication. SUMMARY OF HOSPITAL COURSE: The patient was admitted to the unit where her Celexa was discontinued due to ineffectiveness and Remeron 15 mg was utilized in order to combat depression as well as to improve sleep and appetite. Depakote was added to decrease her impulsivity and sexual behavior. She was maintained on her Exelon and Namenda. Eventually because the behaviors were so persistent, Risperdal was added to decrease her significant impulsivity. The Risperdal dose was gradually increased to its maximum dose of 3 mg a day; however, with this dose, the patient had significant daytime somnolence, so the dose was decreased to its final dose of 0.5 mg in the morning and 1 mg at bedtime. With this medication regimen, the patient was able to sleep at night, but not exhibit daytime somnolence. Her sexually inappropriate behavior subsided and her verbal and physical aggression likewise subsided. She tolerated the medication regimen well and as mentioned previously, did not have sedation or somnolence. Likewise, she did not experience any extrapyramidal symptoms or tardive dyskinesia. The patient had improved sufficiently by 10/09/2018 to return back to [facility]. MENTAL STATUS AT DISCHARGE: The patient is alert and oriented to person, not necessarily to place or time. Mood was strongly trending towards euthymia. Affect was much more appropriate. There was no jody or hypomania. There were no gross psychosis. Short-term memory was exceedingly poor. FINAL DIAGNOSES UPON DISCHARGE: Major depression, recurrent, severe; intermittent explosive disorder; Alzheimer's dementia. DISPOSITION: Her medications have been e-scribed to her institutional Pharmacy. At the time of discharge, she was medically stable and her psychiatric symptoms were under control. I will be the treating psychiatrist upon her readmission to [facility]. [place], [place] DISCHARGE SUMMARY NAME: LO NEVES UNIT #: [id number] ROOM: [facility] DOCTOR: OVIDIO CHILDS MD BIRTHDATE: [birth year] OVIDIO CHILDS MD CM:DISCHARG [id number] OVIDIO CHILDS MD 10/09/18 1316 interface
--- NOTE | ~2018-09-27 | WRIGHTHP ---
[place], [place] PATIENT HISTORY AND PHYSICAL EXAM NAME: LO NEVES UNIT #: [id number] ROOM: 317 DOCTOR: OVIDIO CHILDS MD BIRTHDATE: [birth year] DOS: 09/28/2018 INITIAL PSYCHIATRIC EVALUATION CHIEF COMPLAINT: "Oh, there you are. I would like to meet Dr. Childs." HISTORY OF PRESENT ILLNESS: This is an 78-year-old white female known to me from her stay at [facility] as well as a previous psych admission here to the [facility]. The patient is readmitted now due to increased agitation and both verbal and physical aggression. The patient has been hitting, kicking, biting and spitting at people. She has been noncompliant with her medication and her overall oral intake has declined. She has poor safety awareness and has attempted to get up or elope the facility on multiple occasions and redirection has been next to impossible. She is readmitted now to rule out organic factors, to re-stabilize on medication, to engage in individual and alba milieu activity, returning then to the least restrictive environment when psychiatrically stable. PAST MEDICAL HISTORY: Remarkable for Alzheimer's dementia, congestive heart failure, CVA, hypertension, hypothyroidism, intermittent explosive disorder, major depression and vitamin D deficiency. SOCIAL HISTORY: She does not smoke, drink alcohol or use illicit drugs. ALLERGIES: She has no known allergies. STRENGTHS: Good verbal skills. WEAKNESSES: Significant confusion, poor coping skills. MENTAL STATUS: She is alert and oriented to self only. Unclear if she realizes she is in the hospital and that certainly doubtful. She is not oriented to time. Her responses are short and simple and it is very difficult for her to even string in entire sentence together and she derails frequently. She is very flirtatious, almost hypomanic in her behavior and somewhat sexually inappropriate. She does process information slowly and short-term memory is problematic. DIAGNOSES: Intermittent explosive disorder and major depression, recurrent and Alzheimer's dementia. PLAN: I have discontinued her Celexa in lieu of Remeron with the hope that this will improve her overall p.o. intake. I have started Depakote Sprinkles instead of the Depakene as I do believe I can get higher blood levels with this, we utilized Exelon and Namenda to impact positively on ADLs, behavior and cognition, engage in individual and alba milieu activity, returning then to the least restrictive environment. [place], [place] PATIENT HISTORY AND PHYSICAL EXAM NAME: LO NEVES UNIT #: [id number] ROOM: [facility] DOCTOR: OVIDIO CHILDS MD BIRTHDATE: [birth year] OVIDIO CHILDS MD CM:HISPHYS:PATIENT HISTORY AND PHYSICAL EXAMINATION [id number] OVIDIO CHILDS MD 09/28/18 0923 interface
--- NOTE | ~2018-09-27 | PR ---
[place], [place] PROGRESS NOTE NAME: LO NEVES UNIT #: [id number] ROOM: 317 DOCTOR: OVIDIO TAFOYA MD BIRTHDATE: [birth year] DOS: 10/04/2018 INTERVAL NOTE CHIEF COMPLAINT: "Oh, hi there." SUMMARY OF THE VISIT: The patient was interviewed. She appeared to be sleeping in her chair, but as I approached, she awoke easily and engaged readily. Nurses report she continues to have labile behavior and is somewhat unpredictable. She does seem to be dozing throughout the day, however. MENTAL STATUS: She is alert and oriented to person, possibly place, not to time. Mood does seem to be still labile. Affect at times is inappropriate. PLAN: I will renew her Ativan p.r.n. should she require it. The patient did come to the hospital on a low dose of Depakote, which did not seem to be helpful. Subsequently, the dose has been increased, but I do not believe it has been beneficial, so I will discontinue it and maintain her on the Risperdal. We will engage in individual and alba milieu activity, returning to the least restrictive environment when psychiatrically stable. OVIDIO TAFOYA MD CM:PNTRANS [id number] OVIDIO TAFOYA MD 10/05/18 0729 interface
[~2018-09-27 15:17] MED LIST: ALTACE2.5 M1 PO; ARICEPT10 M1 PO; ASPIRIN CHEWABL81 MG PO; B-1100 M1 PO; COLACE100 MG PO; Depakote Sprin125 MG PO; EXELON13.3 MG/21 T; HYDR12.5C PO; LISINOPRIL10 M1 PO; MEMANTINE HCL10 MG PO; MICROZIDE12.5 M1 PO; MIRTAZAPINE15 M1 PO; MULTIVITAMINS1 EAC5 PO; NAMENDA10 MG PO; NITROFURANTOIN100 M9 PO; REMERON SOLTAB15 MG PO; Synthroid,Levo50 MCG PO; TIMOLOL 5 ML5 ML OPH; TIMOLOL MALEATE5 M2 OPH; VITAMIN D-32000 UNIT PO; Vitamin D PO
[2018-09-27] MEDS ORDERED: CELEXA20 MG PO (15:41)
[2018-09-27] MEDS ORDERED: DEPAKENE S250 MG/5 M PO ×2 (15:42→23:18)
[2018-09-27] MEDS ORDERED: VITAMIN D50000 UNIT PO (15:43)
--- NOTE | 2018-09-27 15:50 | NUR ---
MED REC UPDATED IN ACCORDANCE WITH [facility] RECORDS RECIEVED THIS DATE, 09/27/18
[2018-09-27 22:30] VITALS: BP 125/96
--- NOTE | 2018-09-27 22:30 | NUR ---
LO NEVES a 78 year old F admitted via OTHER from the EMERGENCY ROOM as a voluntary admission. Arrived on unit at 2230P. ALLERGIES: NONE. Vital signs are: 98.4-62-18 125/96. The POA SIGNED the following forms with stated understanding: Authorization For The Release of Medical Information, Clothing List, Consent to Voluntary Admission and Hospitalization, Consent and Release Forms/Receipt of Rights, Acknowledgement of Advance Directive Information, Behavioral Health Consent Form, and Informed Consent of Medications. Admitted under the services of Dr. MICHELET MEDINAOVIDIO. A search was conducted and hazardous articles were removed. Client was oriented to the unit. CAMERON WRIGHT
--- NOTE | 2018-09-27 22:52 | NUR ---
DILLON HUGHES,KEELER POLYGRAPH OPERATOR NOTIFIED OF PTS ADMISSION
[2018-09-27] MEDS ORDERED: DEPAKOTE SPRIN125 MG PO (23:13)
[2018-09-27] MEDS ORDERED: RIVASTIGMINE T1.5 M1 PO (23:16)
--- NOTE | 2018-09-27 23:31 | NUR ---
DR LEMOS NOTIFIED OF MEDICAL CONSULT.
[2018-09-27 23:33] VITALS: BP 125/96
--- NOTE | 2018-09-27 23:44 | NUR ---
DR VILLARREAL ON UNIT TO SEE PT FOR MEDICAL CONSULT
[2018-09-28 07:05] LABS: BASO # 0.1 10*3/uL (0.0-0.1); BASO % 1.1 % (0.0-1.0); EOS # 0.2 10*3/uL (0.0-0.4); EOS % 4.4 % (1.0-4.0); HEMATOCRIT 41.2 % (37.0-47.0); HEMOGLOBIN 14.1 g/dl (12.0-16.0); LYMPH # 1.7 10*3/uL (1.3-4.4); LYMPH % 31.5 % (27.0-41.0); MEAN CELL VOLUME 91.2 fl (81.0-99.0); MEAN CORPUSCULAR HGB 31.2 pg (27.0-31.0); MEAN CORPUSCULAR HGB CONC 34.2 g/dl (33.0-37.0); MEAN PLATELET VOLUME 9.4 fl (9.6-12.3); MONO # 0.6 10*3/uL (0.1-1.0); MONO % 11.7 % (3.0-9.0); NEUT # 2.8 10*3/uL (2.3-7.9); NEUT % 51.1 % (47.0-73.0); PLATELET COUNT AUTOMATED 300 10*3/uL (130-400); RED BLOOD COUNT 4.52 10*6/uL (4.10-5.10); RED CELL DISTRI WIDTH 13.5 % (0-14.5); WHITE BLOOD COUNT 5.4 10*3/uL (4.8-10.8)
[2018-09-28 07:42] LABS: ALBUMIN 3.4 gm/dl (3.1-4.5); ALKALINE PHOSPHATASE 83 U/L (45-117); BUN 17 mg/dl (7-24); CHLORIDE 106 mmol/L (98-107); CHOLESTEROL 237 mg/dL (<200); CREATININE 0.69 mg/dL (0.55-1.02); HDL CHOLESTEROL 60 mg/dl (40-60); LDL CHOLESTEROL 156 mg/dL (9-159); POTASSIUM 3.9 mmol/L (3.5-5.1); SGOT/AST 19 IU/L (3-35); SGPT/ALT 28 U/L (12-78); SODIUM 141 mmol/L (136-145); TOTAL PROTEIN 6.5 gm/dL (6.4-8.2); TRIGLYCERIDES 104 mg/dl (<150); VLDL CHOLESTEROL 21 mg/dL (6-40)
[2018-09-28 07:46] VITALS: BP 119/66
[2018-09-28 07:53] LABS: VALPROIC ACID (DEPAKENE) < 3.0 ug/ml (50-100)
--- NOTE | 2018-09-28 08:15 | NUR ---
Treatment Plan meeting with Dr. Childs, RN, AT and [facility]. Plan for discharge next week. Pt. is oysterman care at [facility] and will return at discharge.
--- NOTE | 2018-09-28 09:16 | NUR ---
PATIENT REFUSED HALF HER MEDICATIONS WITH MUCH ENCOURAGEMENT. MEDICATIONS CRUSHED IN PUDDING, PATIENT SPIT OUT VITAMIN D WITH MULTIPLE ATTEMPTS TO GIVE MEDICATIONS. EDUCATION PROVIDED. PATIENT UNABLE TO COMPREHEND DUE TO POOR COGNITION. PATIENT RESPONDS WITH YES TO SIMPLE QUESTIONS OR OH I KNOW. PATIENT ONLY ALLOWED EYE DROPS TO LEFT EYE.
--- NOTE | 2018-09-28 09:45 | NUR ---
Clinical Updates faxed to [facility] Attn: Angelica. Spoke with Angelica Via telephone at [facility] who advised that patient was senior care care and requires no precert prior to discharge. Pt. currently resides in secured dementia unit at [facility].
--- NOTE | 2018-09-28 11:20 | NUR ---
ON UNIT TO ASSESS PT.
--- NOTE | 2018-09-28 11:30 | NUR ---
Occupational Therapy evaluation completed on 3 with full eval to follow. Precautions include fall risk; bed,chair alarm,erratic behavior,"plays possum", h/o spit, biting others. Patient is moderate complexity level 76239 via chart review, testing and evaluation. Recommend OT per pOC and return to SNF upon d/c. Thank you for this referral. Joanne Stephen OTR/l
--- NOTE | 2018-09-28 11:45 | NUR ---
PHYSICAL THERAPY PAtient evaluated on 3, full evaluation to follow. Continue with PT as per plan of care with fall, unit three, alarms and mod (A) precautions. Return to LTC as prior. PAtint is high complexity via chart review, tests and evaluation: [id number]. Thank you for this referral. Marilia Luna,PT
--- NOTE | 2018-09-28 11:52 | NUR ---
AM GROUP THERAPY PT WAS PRESENT FOR MORNING GROUP THERAPY BUT WAS SLEEPING RECLINED IN A SCOTT CHAIR. PT IS UNABLE TO PARTICIPATE IN GROUP ACTIVITIES DUE TO COGNITIVE IMPAIRMENT AND HIGH LEVEL OF CONFUSION. PT EXHIBITED NO AGGRESSION OR AGITATION DURING GROUP. PT WILL CONTINUE TO ATTEND GROUP THERAPY. WILL CONTINUE TO MONITOR PT.
--- NOTE | 2018-09-28 12:45 | NUR ---
psychosocial hx completed this date.
--- NOTE | 2018-09-28 13:45 | NUR ---
P: MED NON-COMPLIANCE, PT TOOK 1 BITE OF AM MEDS, REFUSED THE REST I: PROVIDE MED EDUCATION, PROVIDE EMOTIONAL SUPPORT AND 1:1 FOR PT TO VOICE FEELINGS R:PT STATED "OH YES I KNOW" P: CONTINUE TO PROVIDE MED EDUCATION AND ENCOURAGE MED COMPLIANCE, MONITOR PT BEHAVIORS ON Q15 MIN SAFETY CHECKS, PROVIDE EMOTIONAL SUPPORT AND 1:1 FOR PT TO VOICE FEELINGS. PT ALERT TO PERSON ONLY, SHORT TERM/MEDICAL RECORD CODER MEMORY DEFICITS NOTED. PT CALM, MOOD IS EUTHYMIC, PLEASANT WITH STAFF AND PEERS. PT RESTLESS AT TIMES. NO HALLUCINATIONS OR DELUSIONS NOTED. PT DENIES ANY HOMICIDAL/SUICIDAL THOUGHTS. PT UP TO A GERICHAIR D/T UNSTEADY GAIT AND LACK OF SAFETY AWARENESS. PT CONTINENT OF BOWEL AND BLADDER, EPISODES OF INCONTINENCE NOTED, CARE PROVIDED NEEDED.
--- NOTE | 2018-09-28 15:39 | NUR ---
PM GROUP THERAPY PT WAS PRESENT FOR AFTERNOON GROUP THERAPY, SLEEPING RECLINED IN A SCOTT CHAIR. PT AWOKE AND WAS VERY PLEASANT AND COMPLIMENTARY AND EXTREMELY CONFUSED. PT IS UNABLE TO PARTICIPATE IN GROUP ACTIVITIES AT THIS TIME DUE TO COGNITIVE IMPAIRMENT AND HIGH LEVEL OF CONFUSION. AT THE END OF GROUP, PT BEGAN STRUGGLING TO GET OUT OFF CHAIR, . PT EXHIBITED NO AGGRESSION TOWARD OTHERS DURING GROUP. PT WILL CONTINUE TO ATTEND GROUP THERAPY.
--- NOTE | 2018-09-28 16:49 | NUR ---
PT TOOK ONE BITE OF THE 1630 MEDS, SPITTING OUT THE REST AT STAFF. UNABLE TO PROVIDE EDUCATION D/T CONFUSION.
[2018-09-28 19:56] VITALS: BP 104/58
--- NOTE | 2018-09-28 21:10 | NUR ---
24 HR chart check completed.
--- NOTE | 2018-09-28 22:50 | NUR ---
P-CONFUSION, NON COMPLIANCE OF MEDICATIONS I-PROVIDE 1:1 & EMOTIONAL SUPPORT, ASSESS ORIENTATION & REORIENT, PROVIDE REDIRECTION PT TAKING HER CLOTHES OFF IN FRONT OF OTHER PATIENTS WHILE SITTING IN THE DINING ROOM. ADMINISTER MEDICATIONS & MONITOR SLEEP, MEDICATE WITH PRN ATIVAN 1 MG PO AT 2209 FOR INCREASED ANXIETY & AGITATION WHEN PROVIDED WITH HANDS ON CARE. R-ALERT TO PERSON ONLY, UNRECEPTIVE TO REORIENTATION OR REDIRECTION, SMILES & STATES "YES" WITH RESPONSES TO STAFF. MOVED TO ANOTHER ROOM AWAY FROM OTHER PATIENTS DUE TO UNDRESSING HERSELF. THOUGHTS ARE DISCONNECTED & IRRELEVANT RESPONSES. FLIGHT OF IDEAS, TALKING ALOT TO SELF & CARRYING ON A CONVERSATION TO UNSEEN PERSONS. REQUIRES MUCH REDIRECTION & PROMPTING TO TAKE MEDICATIONS CRUSHED & MIXED IN PUDDING. P-CONTINUE TO ACCESS ORIENTATION & CONFUSION . ENCOURAGE COMPLIANCE WITH MEDICATIONS. REORIENT & REDIRECT NEEDED.
--- NOTE | 2018-09-29 05:41 | NUR ---
ATSONNY EFFECTIVE & PT HAS SLEPT QUIETLY THROUGOUT THE SHIFT PAST 29
[2018-09-29 08:13] VITALS: BP 121/64
--- NOTE | 2018-09-29 11:15 | NUR ---
ON UNIT TO ASSESS PT.
--- NOTE | 2018-09-29 11:32 | NUR ---
AM GROUP/EXERCISE/STORY/ART PT ATTENDED GROUP BUT UNABLE OT PARTICIPATE DUE TO SLEEPING. PT DID NOT EXPRESS PARANOIA OR AGITATION AT THIS TIME. PT WILL CONTINUE OT BE ENCOURAGED TO ATTEND AND PARTICIPATE IN FUTURE GROUP SESSIONS.
--- NOTE | 2018-09-29 16:38 | NUR ---
P: PT COMBATIVE WITH STAFF DURING HANDS ON CARE, SWINGING AT STAFF, ATTEMPTING TO HIT, ATTEMPTING TO DIG NAILS INTO STAFF MEMBERS ARM I: PROVIDE EMOTIONAL SUPPORT AND 1:1 FOR PT TO VOICE FEELINGS, PROVIDE LOW STIMULATION ENVIRONMENT FOR PT TO CALM R: PT CONTINUES TO SWING OUT AND BE AGGRESSIVE WITH STAFF MEMBERS DURING CARE PT STATES "YES YES TALK TO MY MOTHER ITS MINE, SHE TOOK IT FROM ME." P: CONTINUE TO PROVIDE EMOTIONAL SUPPORT AND 1:1 FOR PT TO VOICE FEELINGS, PROVIDE LOW STIMULATION ENVIRONMENT FOR PT TO CALM. PT ALERT TO PERSON ONLY, SHORT TERM/ALF MEMORY DEFICITS NOTED. PT REFUSED AM PO MEDS, COMPLIANT WITH 1400 PO MEDS WITH MINIMAL DIFFICULTY, UNABLE TO PROVIDE MED EDUCATION D/T CONFUSION. PT IRRITABLE THROUGHOUT THE SHIFT. PT OBSERVED TO BE SPEAKING TO UNSEEN OTHERS AT TIMES, ATTEMPTED TO PRESENT REALITY WITHOUT SUCCESS. PT UP TO A GERICHAIR D/T UNSTEADY GAIT AND LACK OF SAFETY AWARENESS. PT INCONTINENT OD BOWEL AND BLADDER, CARE PROVIDED NEEDED. PLAN IS TO MONITOR PT BEHAVIORS ON Q15 MIN SAFETY CHECKS, ENCOURAGE MED COMPLIANCE, PROVIDE EMOTIONAL SUPPORT AND 1:! FOR PT TO VOICE FEELINGS.
[2018-09-29 20:14] VITALS: BP 117/55
--- NOTE | 2018-09-29 23:31 | NUR ---
P-CONFUSION, PT COMBATIVE WITH STAFF DURING HANDS ON CARE, ATTEMPTING TO HIT AND GRAB STAFF. I- REORIENT TO REALITY AND REDIRECT. PROVIDE 1:1 FOR PATIENT TO VOICE FEELINGS. PROVIDE LOW STIMULATION ENVIRONMENT FOR PT TO CALM. PROVIDE SIMPLE, STEP BY STEP DIRECTIONS WHEN PROVIDING CARE TO DECREASE ANXIETY/IRRITABLITY. R-PT CONTINUES TO GRAB AT STAFF AND BE AGGRESSIVE TOWARD HANDS ON CARE, STATING "WHAT DID I TELL YOU, I NEED THIS, YOU NEED TO CALL THE [facility], IT WAS SOFT AND WET DAMNIT". UNABLE TO REORIENT OR REDIRECT DUE TO CONFUSION. 1:1 ALSO INEFFECTIVE, PT RESPONDS WITH NONSENICAL SPEECH. LOW STIMULATION ENVIRONMENT (PT IN QUIET ROOM IN SCOTT CHAIR) EFFECTIVE IN CALMING PATIENT. P- CONTINUE TO REORIENT AND REDIRECT NEEDED. PROVIDE 1:1 FOR PT TO EXPRESS FEELINGS. ENCOURAGE MEDICATION COMPLIANCE. PROVIDE LOW STIMULATION ENVIRONMENT.
--- NOTE | 2018-09-30 03:57 | NUR ---
24 HOUR CHART CHECK COMPLETED.
--- NOTE | 2018-09-30 06:16 | NUR ---
PATIENT OBSERVED ON Q 15 MIN CHECKS TO HAVE SLEPT APPROX 2 HOURS WITH MULTIPLE AWAKENINGS NOTED TALKING TO UNSEEN OTHERS. PATIENT CURRENTLY UP IN DINING ROOM WATCHING TV WITH PEERS, NO SIGNS OR SYMPTOMS OF DISTRESS NOTED.
[2018-09-30 08:04] VITALS: BP 123/66
--- NOTE | 2018-09-30 10:54 | NUR ---
ON UNIT TO ASSESS PT.
--- NOTE | 2018-09-30 14:33 | NUR ---
P: PT COMBATIVE WITH HOC, ATTEMPTING TO HIT, SCRATCH AND BITE STAFF, PT REFUSED AM PO MEDS I: PROVIDE EMOTIONAL SUPPORT AND 1:1 FOR PT TO VOICE FEELINGS, PROVIDE LOW STIMULATION ENVIRONMENT FOR PT TO CALM, MONITOR PT BEHAVIORS ON Q15 MIN SAFETY CHECKS, ENCOURAGE MED COMPLIANCE, REAPPROACH NEEDED R: BEHAVIORS CONTINUE UNTIL PLACED IN LOW STIMULATION ENVIRONMENT TO CALM P: CONTINUE TO PROIVDE EMOTIONAL SUPPORT AND 1:1 FOR PT TO VOICE FEELINGS, ENOCURAGE MED COMPLIANCE, MONITOR PT BEHAVIORS ON Q15 MIN SAFETY CHECKS PT ALERT TO PERSON ONLY, SHORT TERM/PUPPY SITTER MEMORY DEFICITS NOTED. PT REFUSED AM PO MEDS, COMPLIANT WITH 1400 PO MEDS WITH MINIMAL DIFFICULTY AND ENCOURAGEMENT. PT IRRITABLE THROUGHOUT THE DAY WITH STAFF. NO HALLUCINATIONS OR DELUSIONS NOTED AT THIS TIME. NO HOMICIDAL/SUICIDAL THOUGHTS OR BEHAVIORS NOTED. PT UP TO A GERICHAIR D/T UNSTEADY GAIT AND LACK OF SAFETY AWARENESS. PT INCONTINENT OF BOWEL AND BLADDER, CARE PROVIDED NEEDED.
--- NOTE | 2018-09-30 16:02 | NUR ---
PM GROUP/MOVIE/ART PT ATTENDED GROUP BUT DID NOT PARTICIPATE DUE TO SLEEPING IN SCOTT CHAIR. PT TOILETED LONG-TERM THROUGH BUT PT FELL BACK ASLEEP. PT WILL CONTINUE TO ATTEND GROUP AND PARTICIPATE TO BEST OF ABILITY.
--- NOTE | 2018-09-30 18:19 | NUR ---
PT COMBATIVE WITH HOC ATTEMPTING TO BITE STAFF, HIT AND KCIKING. PT CALMED ONCE CARE COMPLETE.
[2018-09-30 19:49] VITALS: BP 138/68
--- NOTE | 2018-09-30 23:24 | NUR ---
P-CONFUSION, PT COMBATIVE WITH STAFF DURING HOC. I-REORIENT TO REALITY AND REDIRECT, PROVIDE 1:1 FOR PATIENT TO VOICE FEELINGS. PROVIDE LOW STIMULATION ENVIRONMENT FOR PT TO CALM. PROVIDE SIMPLE, STEP BY STEP DIRECTIONS WHEN PROVIDING CARE TO DECREASE ANXIETY/IRRITABILITY. ENCOURAGE MEDICATION COMPLIANCE. R- ALERT TO PERSON ONLY, UNRECPTIVE TO REORIENTATION, SMILES AND STATES "THATS RIGHT" WITH RESPONSES TO STAFF. PT LESS AGITATED DURING HANDS ON CARE THIS SHIFT, TRIED TO GRAB AT STAFF X1, EASILY REDIRECTED WITHOUT DIFFICULTY. MEDICATION COMPLIANCE WITHOUT DIFFICULTY WHEN MIXED WITH GRAPEJUICE. NO PHYSICAL COMPLAINTS VOICED. P-CONTINUE TO REORIENT AND REDIRECT NEEDED. PROVIDE 1:1 FOR PT TO EXPRESS FEELINGS. ENCOURAGE MEDICATION COMPLIANCE. PROVIDE LOW STIMULATION ENVIRONMENT.
--- NOTE | 2018-10-01 06:06 | NUR ---
PATIENT OBSERVED ON Q 15 MIN CHECKS TO HAVE SLEPT >8 HOURS WITH X1 AWAKENING DURING STAFF CHECKS. NO SIGNS OR SYMPTOMS OF DISTRESS NOTED.
--- NOTE | 2018-10-01 06:09 | NUR ---
24 HOUR CHART CHECK COMPLETED.
--- NOTE | 2018-10-01 07:01 | NUR ---
PATIENT REFUSED AM MEDICATIONS AFTER X3 ATTEMPTS. PATIENT PUSHES NURSE AWAY AND STATES "YOUR TAKING THE RIGHT OUT OF ME". UNABLE TO EDUCATE DUE TO NOTED CONFUSION.
[2018-10-01 07:20] VITALS: BP 132/69
--- NOTE | 2018-10-01 08:10 | NUR ---
Treatment Plan meeting with Dr. Childs, RN, AT and bilingual legal assistant. Plan for discharge at the end of the week. 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
--- NOTE | 2018-10-01 11:10 | NUR ---
ON UNIT TO SEE PT AT THIS TIME, UPDATE GIVEN. MADE AWARE PT REFUSED ALL PO MEDS THIS AM.
--- NOTE | 2018-10-01 11:43 | NUR ---
AM GROUP/GAMES/MUSIC THERAPY PT ATTENDED BUT DID NOT PARTICIPATE DUE TO SLEEPING IN SCOTT CHAIR. PT WILL CONTINUE TO ATTEND GROUP AND BE MONITORED.
--- NOTE | 2018-10-01 12:07 | NUR ---
Spoke with Angelica at [facility]. Notified of plans to discharge at the end of the week. Angelica states she will call if facility [facility] is able to transport patient. Clinical Updates faxed to [facility] Attn: Angelica.
--- NOTE | 2018-10-01 13:17 | NUR ---
P- CONFUSION. MEDICATION NONCOMPLIANCE. I- ORIENTATION, MOOD AND BEHAVIOR ASSESSED. ASSESSED PT FOR SI/HI, INTENT OR PLAN. ASSESSED PT FOR EVIDENCE OF HALLUCINATIONS, ATTEMPTED TO ADMINISTER MEDICATIONS PER PHYSICIANS ORDERS. ASSISTANCE WITH ADL CARE PROVIDED FOR PT BY MILIEU STAFF WITH ASSIST X2. ATTEMPTED 1:1 WITH PT TO ALLOW PT TO EXPRESS FEELINGS. ENCOURAGED PT TO ATTEND AND PARTICIPATE IN GROUPS AND ACTIVITIES. R- PT IS ALERT AND ORIENTED TO NAME ONLY, CONFUSED IN ALL OTHER AREAS. ST/LT MEMORY DEFICITS NOTED. RESPS EASY AND EVEN ON ROOM AIR. MOOD APPEARS DEPRESSED WITH FLAT AFFECT. SPEECH IS SOFT, COHERENT, PT IS ABLE TO ANSWER SIMPLE QUESTIONS. PT REFUSED ALL MORNING MEDICATIONS DESPITE MULTIPLE ATTEMPTS BY THIS NURSE AND 2ND RN. PT DECLINED TO ENGAGE IN 1:1 WITH THIS NURSE, PT STATES "I'M NOT SURE". PT NAPPING INTERMITTENTLY, EASILY AROUSABLE VIA VERBAL STIMULI. PT DENIES SI/HI, INTENT OR PLAN. PT DENIES HALLUCINATIONS, NO RESPONSE TO INTERNAL STIMULI NOTED. PT ATTENDED GROUP BUT PARTICIPATION IS LIMITED D/T PT'S COGNITION. P- PLAN TO CONTINUE CURRENT TREATMENT, MONITOR MOOD AND BEHAVIOR, PROVIDE REDIRECTION, 1:1 AND REORIENTATION NEEDED. CONTINUE TO ATTEMPT TO ADMINISTER MEDICATIONS ORDERED AND ENCOURAGE PT TO ATTEND AND PARTICIPATE IN GROUPS AND ACTIVITIES.
--- NOTE | 2018-10-01 16:20 | NUR ---
PM GROUP/ART/MUSIC PT ATTENDED GROUP BUT UNABLE TO PARTICIPATE DUE TO SLEEPING IN SCOTT CHAIR. PT WILL CONTINUE TO ATTEND GROUP AND BE MONITORED.
--- NOTE | 2018-10-01 18:41 | NUR ---
SHIFT CHART CHECK COMPLETED.
[2018-10-01 19:55] VITALS: BP 139/69
--- NOTE | 2018-10-01 21:18 | NUR ---
P-CONFUSION, COMBATIVE WITH HOC. I-REORIENT TO REALITY AND REDIRECT, PROVIDE 1:1 FOR PATIENT TO VOICE FEELIGNS. PROVIDE LOW STIMULATION ENVIRONMENT FOR PT TO CALM. PROVIDE SIMPLE, STEP BY STEP INSTRUCTIONS WITH PROVIDING CARE TO DECREASE ANXIETY/IRRITABILITY. ENCOURAGE MEDICATION COMPLIANCE. R-ALERT TO PERSON ONLY, UNRECEPTIVE TO REORIENTATION, SMILES AND STATES "YES, THATS RIGHT" WITH RESPONSES TO STAFF. PT CONTINUES TO BE LESS AGITATED DURING HANDS ON CARE THIS SHIFT, NO AGGRESSION NOTED. EASILY REDIRECTED WITHOUT DIFFICULTY. MEDICATION COMPLIANT WITH MINIMAL PROMPTING WHEN MIXED WITH GRAPE JUICE. NO PHYSICAL COMPLAINTS VOICED. P-CONTINUE TO REORIENT AND REDIRECT NEEDED. PROVIDE 1:1 FOR EMOTIONAL SUPPORT AND FOR PATIENT TO VOICE FEELINGS. ENCOURAGE MEDICATION COMPLIANCE. PROVIDE A LOW SITMULATION ENVIRONMENT.
--- NOTE | 2018-10-01 23:04 | NUR ---
24 HOUR CHART CHECK COMPLETED.
--- NOTE | 2018-10-02 05:33 | NUR ---
PATIENT OBSERVED ON Q 15 MIN CHECKS TO HAVE SLEPT APPROX 6 HOURS UNINTERRUPTED. NO SIGNS OR SYMPTOMS OF DISTRESS NOTED.
--- NOTE | 2018-10-02 06:19 | NUR ---
PATIENT REFUSED AM MEDICATIONS AFTER X2 ATTEMPTS, PATIENT TURNS HEAD AWAY FROM THIS NURSE. UNABLE TO EDUCATE DUE TO CONFUSION.
[2018-10-02 07:39] VITALS: BP 110/80
--- NOTE | 2018-10-02 08:15 | NUR ---
PHYSICAL THERAPY Patient seen this am for therapy visit and was semi reclined in activity room Beth chair upon therapist arrival. OT asssistant was present for observation only during entire session as patient performed several sit to stand transfers at rail in hallway, Min A. Patient seemed a bit tired this morning and when questioned by therapsit, stated " I feel fine ". Patient also ambulated FINANCIAL COUNSELOR/Min, 20'x 1, demonstrating slow, unsteady gait pattern and LOB x 1 during 180 turn around. Patient returned to her Beth chair and remained in the activity room under [facility] staff Supervision. Will continue per POC as tolerated, total treatment time 14 minutes. Emory Bone, MANAGER SERVICES
--- NOTE | 2018-10-02 08:30 | NUR ---
Treatment Plan meeting with Dr. Childs, RN, AT, SW and Java Security Engineer. Plan for discharge next week. Pt. to return to [facility].
--- NOTE | 2018-10-02 12:04 | NUR ---
PERSONAL DAILY GOAL PT IS UNABLE AT THIS TIME TO ESTABLISH A PDG DUE TO COGNITIVE IMPAIRMENT AND HIGH LEVEL OF CONFUSION.
--- NOTE | 2018-10-02 12:05 | NUR ---
AM GROUP THERPAY PT WAS PRESENT FOR MORNING GROUP THERAPY SLEEPING RECLINED IN A SCOTT CHAIR. PT IS UNABLE TO PARTICIPATE IN GROUP AT THIS TIME DUE TO COGNITIVE IMPAIRMENT AND HIGH LEVEL OF CONFUSION. WILL CONTINUE TO MONITOR PT FOR CHANGES IN BEHAVIOR.
--- NOTE | 2018-10-02 13:49 | NUR ---
P: CONFUSION, COMBATIVE WITH HOC, MED NON-COMPLIANCE I: RE-ORIENT AND PRESENT REALITY NEEDED, PROVIDE EMOTIONAL SUPPORT AND 1:1 FOR PT TO VOICE FEELINGS, PROVIDE LOW STIMULATION ENVIRONMENT FOR PT TO CALM, PROVIDE SIMPLE [id number] INSTRUCTIONS WHEN PROVIDING CARE TO DECREASE COMBATIVE BEHAVIORS. R: PT UNRECEPETIVE TO RE-ORIENTATION, PT LESS COMBATIVE WITH HOC AT TIMES THROUGHOUT THE DAY, BEHAVIORS REMAIN AT OTHER TIMES. PT CALMED ONCE PLACED IN LOW STIMULATION ENVIRONMENT TO CALM AND CARE IS COMPLETED. P: CONTINUE TO PRESENT REALITY NEEDED, CONTINUE TO PROVIDE EMOTIONAL SUPPORT AND 1:1 FOR PT TO VOICE FEELINGS, ENCOURAGE MED COMPLIANCE AND MONITOR PT BEHAVIORS ON Q15 MIN SAEFTY CHECKS.
--- NOTE | 2018-10-02 15:43 | NUR ---
PM GROUP THERAPY/INTERPERSONAL INTERACTIONS PT WAS PRESENT FOR AFTERNOON GROUP THERAPY BUT WAS SOUND ASLEEP RECLINED IN A SCOTT CHAIR. PT IS UNABLE TO PARTICIPATE AT THIS TIME DUE TO COGNITIVE IMPAIRMENT AND HIGH LEVEL OF CONFUSION. WILL CONTINUE TO MONITOR PT.
[2018-10-02 20:00] VITALS: BP 129/53
--- NOTE | 2018-10-02 23:30 | NUR ---
P-CONFUSION AND INAPPROPRIATE BEHAVIOR. SHORT TERM AND NURSING HOME MEMORY DEFICITS. PATIENT WITH VISUAL HALLUCINATIONS AT TIMES STATING THAT SHE SEES THE CHILDREN IN THE ROOM. NO SUICIDAL OR HOMICIDAL IDEATIONS. PATIENT WITH INAPPROPRIATE TONGUE MOVEMENTS AT NURSING STAFF AND PATIENT INTERMITTENTLY PUTTING HER HANDS DOWN THE FRONT OF HER PANTS AND STATING THAT SHE WAS MIXING IT UP AND ASKED NURSING STAFF IF SHE WANTED TO COME MIX IT HER FOR HER. PATIENT REDIRECTION FROM INAPPROPRIATE BEHAVIOR WITH SOMEWHAT EFFECTIVE RESULTS. I-REDIRECTION WITH 1:1 INTERVENTION AND PRESENT REALITY ORIENTATION. EDUCATE AND ENCOURAGE MEDICATION COMPLIANCE R-PATIENT IS MEDICATION COMPLIANT WITH HS MEDICATIONS. PATIENT CALM, PURPOSEFUL, ISOLATIVE, AND WITHDRAWN. PAIENT INCONTINENT AND CONTINENT OF BLADDER. PATIENT PROVIDED NOURISHMENT, FLUIDS, AND TOILETING. P-CONTINUE MEDICATION COMPLIANCE, CONTINUE TO PRESENT REALITY ORIENTATION, ENCOURAGE GROUP THERAPY WHILE AWAKE
--- NOTE | 2018-10-03 02:13 | NUR ---
24 HR chart check completed.
--- NOTE | 2018-10-03 06:00 | NUR ---
PATIENT SLEPT 6-7 HOURS OF INTERRUPTED SLEEP THROUGHOUT SHIFT. Q 15 MINUTE CHECKS MAINTAINED
--- NOTE | 2018-10-03 07:40 | NUR ---
PHYSICAL THERAPY Patinet seen this am for therapy visit and was sitting up in Beth chair within activity room upon therapist arrival. Patient voices no new c/o's this moring and OT Asssistant was present for observation only throughout entire treatment. Patient seemed a little more confused this session, requiring several v/c's to stay focused on task, transfering sit to stand MIN A x 1. Patient ambulates BUSINESS SOLUTION ANALYST/Min, 50'x 1, demonstrating slight L side deviation, decreaed stride and unsteady gait pattern with all turns. Patient was very pleasant and returned to Beth chair with mild fatigue. Patient remained in activity room in chair with lap tray and body alarm for safety, under [facility] staff Supervision. Will continue per POC as tolerated, total treatment time 16 minutes. Emory Bone, WELD TECHNICIAN
--- NOTE | 2018-10-03 07:50 | NUR ---
PT AWAKE, ALERT, EATING BREAKFAST IN THE DINING ROOM AT THIS TIME.
--- NOTE | 2018-10-03 08:07 | NUR ---
ON UNIT TO SEE PT AT THIS TIME.
[2018-10-03 08:31] VITALS: BP 110/40
--- NOTE | 2018-10-03 08:45 | NUR ---
PT IN DINING ROOM WITH PEERS, DISPLAYING EUPHORIC MOOD, SMILING AT UNSEEN OTHERS WITH INAPPROPRIATE LAUGHTER NOTED.
--- NOTE | 2018-10-03 09:50 | NUR ---
ON UNIT TO SEE PT AT THIS TIME.
--- NOTE | 2018-10-03 12:05 | NUR ---
AM GROUP THERAPY/SELF-CARE PT WAS PRESENT FOR MORNING GROUP THERAPY SLEEPING SOUNDLY IN A SCOTT CHAIR. PT NURSE ATTEMPTED TO ROUSE PT BUT WAS VERY DIFFICULT. THIS HAS BEEN THE TREND SINCE ADMITTANCE. PT IS UNABLE TO PARTICIPATE IN GROUP ACTIVITIES DUE TO COGNITIVE IMPAIRMENT.
--- NOTE | 2018-10-03 15:54 | NUR ---
PM GROUP THERAPY/RELAXATION TECHNIQUES PT WAS PRESENT FOR AFTERNOON GROUP THERAPY SLEEPING SLUMPED OVER IN A SCOTT CHAIR. PT DID NOT AWAKEN ON HER OWN ONCE. PT WAS AWAKENED AND REPOSITIONED AND WOULD ONLY RESPOND WITH ONE WORD ANSWERS. I HAVE YET TO HAVE PT IN GROUP WITH ANY ALERTNESS. PT IS UNABLE TO PARTICIPATE OR VOICE NEEDS AT THIS TIME.
--- NOTE | 2018-10-03 16:43 | NUR ---
Discharge Plan is to discharge next week with return to [facility].
--- NOTE | 2018-10-03 17:47 | NUR ---
P- CONFUSION, LABILE MOOD, INTERMITTENT NAPPING, MEDICATION NONCOMPLIANCE, MINIMALLY AGGRESSIVE WITH HANDS ON CARE. I- ORIENTATION, MOOD AND BEHAVIOR ASSESSED. ASSESSED PT FOR SI/HI, INTENT OR PLAN. ASSESSED PT FOR S/S OF INTERNAL STIMULI, PARANOIA AND DELUSIONS. ATTEMPTED TO ADMINISTER MEDICATIONS PER PHYSICIAN'S ORDERS. ADL CARE PROVIDED FOR PT WITH STAFF ASSIST X3. ENCOURAGED PT TO ATTEND AND PARTICIPATE IN GROUPS AND ACTIVITIES. R- PT IS ALERT AND ORIENTED TO SELF ONLY. CONFUSED IN ALL OTHER AREAS. ST/LT MEMORY IMPARIMENTS NOTED. RESPS EASY AND EVEN ON ROOM AIR. PT NAPS INTERMITTENTLY T/O SHIFT, EASILY AROUSABLE VIA VERBAL/TACTILE STIMULI. PT GIVES SIMPLE ONE WORD ANSWERS TO QUESTIONS, STATES SHE IS FEEING "GOOD". PT REFUSED ALL AM MEDICATIONS. HANDS ON CARE PROVIDED BY 3 STAFF D/T AGGRESSIVE BEHAVIORS. PT INCONTINENT FOR AN EXTRA LARGE SOFT BM. PT ATTENDS GROUP BUT PARTICIPATION IS LIMITED D/T COGNITION. P- PLAN TO CONTINUE CURRENT TREATMENT, MONITOR BEHAVIORS, PROVIDE REDIRECTION, 1:1 AND REORIENTATION NEEDED. CONTINUE TO ENCOURAGE MEDICATION COMPLIANCE AND GROUP ATTENDANCE AND PARTICIPATION.
--- NOTE | 2018-10-03 18:41 | NUR ---
SHIFT CHART CHECK COMPLETED.
[2018-10-03 20:56] VITALS: BP 110/65
--- NOTE | 2018-10-03 23:58 | NUR ---
P-CONFUSION AND DISROBING. PATIENT WITH SHORT TERM AND ASSISTED MEMORY DEFICITS. PATIENT DISROBING IN THE DINING AREA. PATIENT REDRESSED AND COVERED MULTIPLE TIMES THROUGHOUT SHIFT. PATIENT WITH NO HALLUCINATIONS OF DELUSIONS. PATIENT WITH NO SUICIDAL OR HOMICIDAL IDEATIONS AT THIS TIME. I-REDIRECTION WITH 1:1 INTERACTION AND PRESENT REALITY ORIENTATION. EDUCATE AND ENCOURAGE MEDICATION COMPLIANCE. R- REDIRECTION WITH 1:1 INTERACTION AND PRESENTING REALITY EFFECTIVE FOR SHORT PERIODS OF TIME DUE TO COGNITION. PATIENT MEDICATION COMPLIANT. PATIENT IS ANIMATED AND WITH CONFUSED THOUGHT PROCESS. P-CONTINUE MEDICATION COMPLAINCE, CONTINUE PRESENTING REALITY, ENCOURAGE GROUP THERAPY WHILE AWAKE
--- NOTE | 2018-10-04 00:20 | NUR ---
24 HR chart check completed.
--- NOTE | 2018-10-04 06:14 | NUR ---
PATIENT SLEPT 6-7 HOURS OF INTERRUPTED SLEEP THROUGHOUT SHIFT. Q 15 MINUTE CHECKS MAINTAINED
--- NOTE | 2018-10-04 07:40 | NUR ---
PHYSICAL THERAPY Patient was semi reclined in Beth chair this am and unable to arouse for therapy visit. Patient not appropriate at this time and will continue per POC as able. Emory Bone, APPLICATION SUPPORT LEAD
[2018-10-04 08:03] VITALS: BP 111/62
--- NOTE | 2018-10-04 08:15 | NUR ---
Treatment Plan meeting with Dr. Childs, RN, AT, SW and Net Web Application Developer. Plan for discharge next week. 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
--- NOTE | 2018-10-04 12:19 | NUR ---
AM GROUP/MUSIC THERAPY PT WAS PRESENT FOR MORNING GROUP SLEEPING IN A SCOTT CHAIR. PT IS UNABLE TO PARTICIPATE IN GROUP AT THIS TIME DUE TO COGNITIVE IMPAIRMENT AND HIGH LEVEL OF CONFUSION.
--- NOTE | 2018-10-04 12:20 | NUR ---
PERSONAL DAILY GOAL PRESENT PT WITH REALITY ORIENTATION NEEDED AND MEMORY BRIDGE BETWEEN PAST AND PRESENT
--- NOTE | 2018-10-04 15:03 | NUR ---
P- CONFUSION, NAPPING INTERMITTENTLY, IRRITABLE MOOD, COMBATIVE WITH HANDS ON CARE. MEDICATION NONCOMPLIANCE. I- ORIENTATION, MOOD AND BEHAVIOR ASSESSED. ASSESSED PT FOR SI/HI, INTENT OR PLAN. ASSESSED PT FOR S/S INTERNAL STIMULI, PARANOIA AND DELUSIONS. ATTEMPTED TO ADMINISTER MEDICATIONS PER PHYSICIAN'S ORDERS. ATTEMPTED 1:1 WITH PT TO ALLOW PT TIME TO EXPRESS SELF. ENCOURAGED PT TO ATTEND AND PARTICIPATE IN GROUPS AND ACTIVITIES. R- PT IS ALERT AND ORIENTED TO SELF ONLY, CONFUSED IN ALL OTHER AREAS. RESPS EASY AND EVEN ON ROOM AIR. MOOD IS IRRITABLE WHEN STAFF ATTEMPTS TO ENGAGE PT IN GROUPS, ACTIVITIES OR CONVERSATIONS. UPON ATTEMPT OF 1:1 WITH PT BY THIS RN PT STATED "NO. JUST LEAVE ME ALONE. THIS IS TERRIBLE". PT NAPS INTERMITTENTLY THROUGHOUT THE SHIFT, EASILY AROUSABLE VIA VERBAL AND TACTILE STIMULI. PT DENIES SI/HI, INTENT OR PLAN. PT DENIES HALLUCINATIONS, NO RESPONSE TO INTERNAL STIMULI NOTED. PT REFUSED AM MEDICATIONS. PT ATTENDS GROUP BUT PARTICIPATION LEVEL IS LIMITED D/T COGNITIVE STATUS. P- PLAN TO CONTINUE CURRENT TREATMENT, MONITOR MOOD AND BEHAVIOR, PROVIDE REDIRECTION, 1:1 AND REALITY REORIENTATION NEEDED. PLAN TO CONTINUE TO ENCOURAGE MEDICATION COMPLIANCE AND GROUP ATTENDANCE AND PARTICIPATION.
--- NOTE | 2018-10-04 15:11 | NUR ---
SHIFT CHART CHECK COMPLETED.
--- NOTE | 2018-10-04 15:58 | NUR ---
PM GROUP/CREATIVE OUTLETS PT WAS PRESENT FOR GROUP SLEEPING IN A SCOTT CHAIR. PT STIRRED OCCASIONALLY BUT DID NOT OPEN HER EYES. PT IS UNABLE TO PARTICIPATE IN GROUP AT THIS TIME DUE TO COGNITIVE IMPAIRMENT.
[2018-10-04 20:27] VITALS: BP 126/60
--- NOTE | 2018-10-05 00:10 | NUR ---
24 HR chart check completed.
--- NOTE | 2018-10-05 05:30 | NUR ---
PATIENT ALERT WITH CONFUSION. PATIENT WITH SHORT TERM AND DETENTION MEMORY DEFICITS. PATIENT WITH NO RESPIRATORY DISTRESS. PATIENT WITH NONSENSICAL SPEEECH AT TIMES. PATIENT [facility] WITH ASSIST X 2. PATIENT PROVIDED NOURISHMENT, FLUIDS, AND TOILETING. SEE [facility] FLOW SHEET FOR SPECIFIC MONITORING
--- NOTE | 2018-10-05 08:15 | NUR ---
Treatment Plan meeting with Dr. Childs, RN, AT, and Actor Understudy. Plan for discharge Monday. 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 Will return at discharge.
[2018-10-05 08:35] VITALS: BP 120/65
--- NOTE | 2018-10-05 08:50 | NUR ---
PHYSICAL THERAPY Patient seen this am for therapy visit and was sitting semi reclined in activity room Beth chair upon therapist arrival. Patient was very alert and pleasant following breakfast, voicing no new c/o's. Patient moved to [facility] hallway near nurses station and was observed by staff for entire treatment time. Patient transfers sit to stand CGA while ambulating LEARNING SUPPORT ASSISTANT/CGA, 175'x 1, demontrating impulsive behaviour at times, LOB x 1 during 180 turn and improved stride. Patient returned to Beth chair with lap tray and body alarm in activity room, while remaining under [facility] staff Supervision. Will continue per POC as tolerated, total treatment time 16 minutes. Emory Bone, CAREER BASED INTERVENTION COORDINATOR
--- NOTE | 2018-10-05 11:42 | NUR ---
AM GROUP THERAPY NO AM GROUP DUE TO NEW PT ASSESSMENTS AND 1:1
--- NOTE | 2018-10-05 11:43 | NUR ---
Spoke with Angelica Butler at [facility]. Advised of Plans to discharge Monday. Faxed Updates to [facility] Attn: Angelica.
--- NOTE | 2018-10-05 15:38 | NUR ---
PERSONAL DAILY GOAL REALITY ORIENTATION AND MEMORY BRIDGE PT HIGHLY CONFUSED AND UNAWARE OF PLACE OR TIME.
--- NOTE | 2018-10-05 15:39 | NUR ---
PM GROUP/GAMES AND SOCIALIZATION PT WAS PRESENT FOR GROUP AND SLEPT THE FIRST HALF HOUR. PT AWOKE AND BEGAN TALKING TO PEERS. PT SPOKE OUT OF CONTEXT, EXHIBITED HALLUCINATIONS BY SEEING "OTHERS" AND BEGAN TOUCHING A PEER. PT IS UNABLE TO PARTICIPATE IN GROUP THERAPY DUE TO COGNITIVE IMPAIRMENT AND HIGH LEVEL OF CONFUSION.
--- NOTE | 2018-10-05 16:22 | NUR ---
PT MOOD IS STABLE, AFFECT IS ANIMATED. PT IS ALERT AND CONFUSED. SPEECH IS NONSENSICAL. PT REDIRECTED TO PLACE, TIME, AND SITUATION. PT SMILING LARGELY THROUGHOUT REDIRECTION. ST/LT MEMORY DEFICITS APPARENT. PT PLEASANT, COOPERATIVE. REDIRECTION NOT EFFECTIVE. PT CONTINUES RAMBLING WITH NONSENSICAL SPEECH. PLAN TO CONTINUE TO REORIENT PT NEEDED. CONTINUE TO ENCOURAGE MEDICATION COMPLIANCE. REDIRECT NEEDED. MONITOR FOR ANY CHANGES IN MENTAL STATUS.
[2018-10-05 20:03] VITALS: BP 105/65
--- NOTE | 2018-10-05 22:15 | NUR ---
24 HR chart check completed.
--- NOTE | 2018-10-05 23:10 | NUR ---
P-CONFUSION I-PROVIDE 1:1 FOR SUPPORT & VENTILATION OF FEELINGS, ASSESS ORIENTATION, REORIENT NEEDED, REDIRECT, ADMINISTER HS MEDICATIONS, MONITOR SLEEP R-ALERT TO PERSON ONLY, MOOD PLEASANTLY CONFUSED, UNRECEPTIVE TO REORIENTATION, SHORT & HEALTH INFORMATION CODER MEMORY DEFICITS PRESENT, PREOCCUPIED, TALKING TO UNSEEN OTHERS IN THE DINING ROOM, WHEN ASKED WHO SHE WAS TALKING TO, PT STATED, "MY MOM & DAD. YEAH, CATCHING UP ON THAT". COMPLIANT TAKING HS MEDICATIONS CRUSHED & MIXED IN PUDDING. PT WAS ASSISTED TO THE BATHROOM & WAS CONTINENT & INCONTINENT OF URINE. WHEN PT RETURNED TO DINING ROOM SHE WAS SITTING IN A SCOTT CHAIR WITH A TRAY & & SHE LOOKED AT A MALE PEER & STATED, "HE'S MINE. HE'S MINE" & WAS SMILING EXCESSIVELY. PT THEN NOTED TO MOVE HER HAND UNDER THE TRAY & STATED, "I HAVE TO OPEN IT UP TO GET READY". RN ASKED PT "WHAT DO YOU MEAN BY SAYING THAT". PT CONTINUED TO SMILE EXCESSIVELY & LIFTED HER SHIRT UP & GRABBED HER LEFT BREAST & SHOOK IT & STATED WHILE LAUGHING INAPPROPRIATELY, "CAUSE IT FEELS SO GOOD". APT REDIRECTED & REMOVED OUT OF THE DINING ROOM & TO GROUP ROOM BY HERSELF, DIRECTLY ACROSS FROM THE NURSES STATION. PT CONTINUED TO SMILE. HER UNDERSTANDING OF HER ACTIONS SEEMED TO BE VERY POOR. P-CONTINUE TO ASSESS CONFUSION & BEHAVIOR, MONITOR SLEEP
--- NOTE | 2018-10-06 05:41 | NUR ---
PT SLEPT PAST 2300 -0230 & REMAINED AWAKE APPROX 1 HOUR. SHE RETURNED TO SLEEP FOR APPROX ANOTHER HOUR & A HALF SLEEPING APPROX 5 HOURS THIS SHIFT.
[2018-10-06 08:18] VITALS: BP 114/69
--- NOTE | 2018-10-06 11:45 | NUR ---
P: CONFUSION, DELUSIONS, POOR INTAKES, I: REDIRECT AND REORIENT ABLE, PROVIDE INSTRUCTIONS WITH ALL HOC AND INTERACTION IN SIMPLE TERMS. MONITOR FOR TRIGGERS AND AGITATION R: PT PLEASANT SMILING WITH CONFUSION STILL PRESENT, UNABLE TO REORIENT DUE TO COGNITIVE LOSSES AT THIS TIME. PT WILL FEED SELF WITH SMALL AMOUNTS OR 1 ITEM AT A TIME PRESENTED TO HER, P: CONTINUE TO MONITOR AND PROVIDE SUPPORT AND WORK TO INCREASE INTAKES AND MEDICATION COMPLIANCE
--- NOTE | 2018-10-06 12:23 | NUR ---
AM GROUP/EXERCISE/FOCUS PT ATTENDED FIRST 10 MINUTES OF GROUP BUT BECAME VERY TALKATIVE AND DISTRACTING OTHER PT'S IN GROUP. PT REMOVED FROM ACTIVITUY'S DUE TO BEING A DISTRACTION. PT PLEASANT IN CONVERSATION BUT LOUD AND NONSENSICAL. PT WILL CONTINUE TO ATTEND GROUP AND ENCOURAGED TO PARTICIPATE TO BEST OF ABILITY.
--- NOTE | 2018-10-06 12:25 | NUR ---
PERSONAL DAILY GOAL PT UNABLE TO COME UP WITH GOAL DUE TO LEVELS OF CONFUSION.
--- NOTE | 2018-10-06 13:44 | NUR ---
DR. DAVILA ON UNIT TO SEE PT
--- NOTE | 2018-10-06 15:42 | NUR ---
Shift chart check completed.
[2018-10-06 20:01] VITALS: BP 120/68
--- NOTE | 2018-10-06 22:13 | NUR ---
P-CONFUSION I-PROVIDE 11 FOR SUPPORT & VENTILATION OF FEELINGS, ASSESS ORIENTATION & REORIENT, PROVIDE DIRECTIVES, ASSIST WITH HANDS ON CARE NEEDED, ADMINISTER HS MEDICATIONS & MONITOR SLEEP R-PLEASANTLY CONFUSED, ALERT TO PERSON ONLY. UNRECEPTIVE TO REORIENTATION, PREOCCUPIED, TALKING TO UNSEEN OTHERS & STATED THERE ARE "2 KIDS RUNNING AROUND HERE. ONE IS MY SON RADHA" PT STATED THAT SHE SEES THEM, "THEY ARE RUNNING ALL OVER THE PLACE." NO INAPPROPRIATE BEHAVIOR THUS FAR. COMPLIANT TAKING HS MEDICATIONS CRUSHED & MIXED IN PUDDING. P-CONTINUE TO MONITORING CONFUSION, ORIENTATION & SLEEP
--- NOTE | 2018-10-06 22:56 | NUR ---
24 HR chart check completed.
--- NOTE | 2018-10-07 04:50 | NUR ---
PT HAS REMAINED AWAKE SINCE THE ONSET OF THE SHIFT TALKING QUIETLY TO HERSELF. SHE WAS NOTED TO BE SLEEPING QUIETLY PAST 0245.
[2018-10-07 07:57] VITALS: BP 112/70
--- NOTE | 2018-10-07 11:07 | NUR ---
P - PT DROWSY DURING ASSESSMENT. MINIMAL COMMUNICATION WITH STAFF. DIFFICULTY IN FOLLOWING VERBAL COMMANDS, PT IS CONFUSED. PT VERBALLY CUED TO TAKE A DRINK OF WATER AND PATIENT IS SMILING AND SAYING "OK", THEN WOULD NOT TAKE A DRINK, WHEN PT DID ATTEMPT TO TAKE A DRINK, PT WOULD ONLY TRY TO BITE THE STYROFOAM CUP. I - PT REDIRECTED, ENCOURAGED TO FOCUS ON TASK. PT REORIENTED TO TIME, AND PLACE. R - PT WAS ABLE TO FOCUS ON TASK AND TAKE A DRINK OF WATER. PT CONTINUED SMILING WILDLY AT STAFF, PLEASANT. ST/LT MEMORY DEFICITS REMAIN APPARENT. P - CONTINUE TO REDIRECT PT NEEDED, ENCOURAGE PT TO PERFORM TASKS TO MAINTAIN HIGHEST FUNCTIONAL ABILITY. CONTINUE TO REORIENT PT NEEDED. ENCOURAGE PT TO PARTICIPATE IN GROUP THERAPY/ACTIVITY FOR SOCIALIZATION AND SUPPORT.
--- NOTE | 2018-10-07 16:42 | NUR ---
PM GROUP/EXERCISE/BINGO/ART PT ATTENDED BUT DID NOT PARTICIPATE DUE TO SLEEPING IN SCOTT CHAIR ENTIRE GROUP. PT WILL CONTINUE TO ATTEND GROUP AND BE ENCOURAGED TO PARTICIPATE TO BEST OF ABILITY.
--- NOTE | 2018-10-07 16:43 | NUR ---
PERSONAL DAILY GOAL PT UNABLE TO COME UP WITH GOAL DUE TO SLEEPING IN SCOTT CHAIR.
--- NOTE | 2018-10-07 18:12 | NUR ---
PT REFUSING MILK OF MAGNESIA. PT WILL NOT OPEN MOUTH FULLY. PT LETS SMALL SIPS DROOL OUT OF HER MOUTH, REFUSING TO DRINK OR SWALLOW.
[2018-10-07 20:00] VITALS: BP 125/72
--- NOTE | 2018-10-07 22:00 | NUR ---
24 HR chart check completed.
--- NOTE | 2018-10-08 00:50 | NUR ---
P-CONFUSION I-REORIENT, PROVIDE SIMPLE DIRECTIVES, ASSIST WITH HANDS ON CARE NEEDED, ADMINISTER MEDICATIONS, MONITOR SLEEP R-CONFUSION CONTINUES, ALERT TO PERSON ONLY, MINIMAL COMMUNICATION, PT CONTINUES TO SMILE WITH EYES CLOSED STATING "YES & OK". DID TAKE MEDICATIONS CRUSHED & MIXED IN PUDDING & TOOK FLUIDS BUT REQUIRED MUCH PROMPTING & TIME TO DO SO. MEMORY DEFICITS CONTINUE. P-CONTINUE TO MONITOR & PROVIDE WITH PHYSICAL ASSISTANCE & EMOTIONAL SUPPORT NEEDED
--- NOTE | 2018-10-08 06:02 | NUR ---
PT HAS SLEPT QUIETLY IN HER BED PAST 2100
--- NOTE | 2018-10-08 07:10 | NUR ---
PHYSICAL THERAPY Patient seen this am 1:1 for therapy visit and was sitting semi reclined in activity room Beth chair. Patient was resting comfortably and voiced no new c/o's this morning, however was a bit confused, requiring several v/c's to focus on task in completing all therapy. Patient performed seated B LE therex, all planes, x 15 reps each, followed by sit to stand transfer, BRIDGE INSTRUCTOR/Min A. Patient ambulates BRIDGE INSTRUCTOR/Min this session 130'x 1, demonstrating decreased stride and unsteady gait pattern. Patient LOB x 1 during backward walk, 8'x 1 and returned to Beth chair with lap tray and body alarm. Patient remained in activity room awaiting breakfast under [facility] staff Supervsion. Will continue perf POC as tolerated, total treatment time 24 minutes. Emory Bone, WEBBING SEAMER POUND NET
[2018-10-08 08:11] VITALS: BP 122/78
--- NOTE | 2018-10-08 08:15 | NUR ---
Treatment Plan meeting with Dr. Childs, RN, AT, and Washing Tub Operator. Plan for discharge Monday. Pt. Bill Adjuster Care at [facility].
--- NOTE | 2018-10-08 10:58 | NUR ---
PERSONAL DAILY GOAL PERSONAL SPACE/BOUNDRIES PT NEEDS TO RECOGNIZE PERSONAL SPACE AND BOUNDRIES. PT WILL NOT TOUCH OR APPROACH ANOTHER PROVOCATIVELY.
--- NOTE | 2018-10-08 12:21 | NUR ---
AM GROUP/EXERCISES/GAMES PT ATTENDED GROUP BUT UNABLE TO PARTICIPATE DUE TO SLEEPING. PT WILL CONTINUE TO ATTEND GROUP AND BE ENCOURAGED TO PARTICIPATE TO BEST OF ABILITY.
--- NOTE | 2018-10-08 12:54 | NUR ---
Spoke with Angelica at [facility]. Advised of plans to discharge Monday. Faxed Updates.
--- NOTE | 2018-10-08 15:11 | NUR ---
PHYSICAL THERAPY CO-SIGN I approve of the Phyical Therapy notes written above. PADMINI DOE PT
--- NOTE | 2018-10-08 16:01 | NUR ---
PM GROUP/ART/MUSIC PT ATTENDED GROUP BUT DID NOT PARTICIPATE DUE TO SLEEPING PART WAY THORUGH GROUP. PT THEN WOKE UP AND LISTENED TO MUSIC, PT PLEASANTLY CONFUSED AT THIS TIME. PT WILL CONTINUE TO ATTEND GROUP AND BE ENCOURAGED TO PARTICIPATE.
--- NOTE | 2018-10-08 16:43 | NUR ---
DR. DAVILA ON UNIT TO ASSESS PATIENT.
--- NOTE | 2018-10-08 18:07 | NUR ---
PATIENT IS ALERT TO SELF WITH CONFUSION; LONG/SHORT TERM MEMORY DEFICITS. MOOD IS STABLE AND WITHDAWN. NO RESPONSE TO INTERNAL STIMULI OBSERVED, NO VOICED STATEMENT OF HI/SI OR PAIN. 2 PERSON ASSIST WITH ACTIVITIES OF DAILY LIVING, INCONTINENT OF BOWEL AND BLADDER. SET UP FOR MEALS WITH 1 PERSON ASSIST AND CUEING TO EAT MEALS, ENCOURAGED TO DRINK FLUIDS. Q 15 MINUTE SAFETY CHECKS, MEDICAITON COMPLAINT. NO AGGRESSION WITH CARE OBSERVED. CONTINUE TO MONITOR FOR AGGRESSION, MEAL INTAKES; PROVIDE ONE ON ONE AND REDIRECTION NEEDED.
[2018-10-08 20:49] VITALS: BP 130/68
--- NOTE | 2018-10-09 03:23 | NUR ---
P-CONFUSION I-REORIENT, PROVIDE SIMPLE DIRECTIVES, ENCOURAGE MEDICATION COMPLIANCE. MONITOR SLEEP. R- ALERT TO PERSON ONLY, UNRECEPTIVE TO REORIENTATION. SMILES AND STATES "YES, THATS WHAT IT IS" WITH RESPONSES TO STAFF. MEDICATION COMPLIANT WITH MINIMAL PROMPTING WHEN CRUSHED AND PLACED IN PUDDING. COMPLAINT WITH HANDS ON CARE. P-CONTINUE TO REORIENT AND REDIRECT NEEDED. PROVIDE 1:1 FOR EMOTIONAL SUPPORT AND PATIENT TO VOICE FEELINGS.ENCOURAGE MEDICATION COMPLIANCE. Q 15 MIN SAFETY CHECKS.
--- NOTE | 2018-10-09 05:50 | NUR ---
24 HOUR CHART CHECK COMPLETED.
--- NOTE | 2018-10-09 06:24 | NUR ---
PATIENT OBSERVED ON Q 15 MIN CHECKS TO HAVE SLEPT APPROX 7 HOURS WITH NO AWAKENINGS OR SIGNS AND SYMPTOMS OF DISTRESS NOTED.
--- NOTE | 2018-10-09 07:10 | NUR ---
PHYSICAL THERAPY Patient was seen this am for therapy visit and was sitting semi reclined in Fabiola chair within activity room upon therapist arrival. Patient performed seated B LE therex, all planes, x 15 reps each with OT accountant assistant observation only for entire treatment. Patient required several v/c's to focus on task and remained in activity room Beth chair with lap tray and body alarm for safety under [facility] staff Supervision. Will continue per POC as tolerated, total treatment time 14 minutes. Emory Bone, ASSISTANT PROFESSOR OF MATHEMATICS
[2018-10-09 08:06] VITALS: BP 122/69
[2018-10-09 08:07] VITALS: BP 122/69
--- NOTE | 2018-10-09 08:15 | NUR ---
Treatment Plan meeting with Dr. Childs, RN, AT, SW and Sales Associate Fishing. Plan for discharge today.
--- NOTE | 2018-10-09 09:18 | NUR ---
PHYSICAL THERAPY Progress towards goals noted, will extend goals to 10/25. Marilia Luna,PT
[2018-10-09] MEDS ORDERED: RISPERIDONE M-TA1 MG BC (09:58)
[2018-10-09] MEDS ORDERED: MEMANTINE HCL10 MG PO (09:58)
[2018-10-09] MEDS ORDERED: MIRTAZAPINE15 M1 PO (09:58)
[2018-10-09] MEDS ORDERED: EXELON13.3 MG/21 T (09:58)
[2018-10-09] MEDS ORDERED: RISPERIDONE0.5 MG PO (09:58)
--- NOTE | 2018-10-09 10:01 | NUR ---
DR. DAVILA ON UNIT TO ASSESS PATIENT.
--- NOTE | 2018-10-09 12:03 | NUR ---
PERSONAL DAILY GOAL ISSUES OF AGING PT IS PLEASANTY CONFUSED AND RESPONDS TO UNDERSTANDING AND AGE AWARENESS.
--- NOTE | 2018-10-09 12:04 | NUR ---
AM GROUP/EXERCISE/SELF-WORTH PT WAS PRESENT FOR MORNING GROUP THERAPY BUT IS UNABLE TO PARTICIPATE DUE TO COGNITIVE IMPAIRMENT AND HIGH LEVEL OF CONFUSION. PT WAS PLEASANT, SMILING AND ATTEMPTING TO CONVERSE WITH PEERS. PT EXHIBITED NO AGITATION OR AGGRESSION DURING GROUP
--- NOTE | 2018-10-09 14:58 | NUR ---
AMBULANCE SERVICE HERE PATIENT ASSISTED ON TO [facility]. ALL BELONGING AND DISCHARGE INSTRUCTION SENT WITH PATIENT OFF UNIT.
--- NOTE | 2018-10-09 15:58 | NUR ---
NURSE TO NURSE REPORT GIVEN TO HIMANSHU AT [facility].
--- NOTE | 2018-10-10 07:16 | NUR ---
PHYSICAL THERAPY CO-SIGN I approve of the Phyical Therapy notes written above. PADMINI DOE PT
== END 2018-10-09 14:54 | DRG 883 ==
LOC: 3N 15:17
PROVIDERS: ADMIT Psychiatry & Neurology Psychiatry
DX: F63.81 Intermittent explosive disorder (principal); F23 Brief psychotic disorder; I50.32 Chronic diastolic (congestive) heart failure; F33.2 Major depressive disorder, recurrent severe without psychotic features; G30.9 Alzheimer's disease, unspecified; F02.80 Dementia in other diseases classified elsewhere, unspecified severity, without behavioral disturbance, psychotic disturbance, mood disturbance, and anxiety; I11.0 Hypertensive heart disease with heart failure; E03.9 Hypothyroidism, unspecified; E55.9 Vitamin D deficiency, unspecified; Z86.73 Personal history of transient ischemic attack (TIA), and cerebral infarction without residual deficits; Z87.440 Personal history of urinary (tract) infections; Z79.899 Other long term (current) drug therapy

== ENCOUNTER 2018-09-27 20:46 | Emergency (ER) | payer MEDICARE ==
[~2018-09-27] VITALS: Ht 154.9 cm; Wt 65.8 kg
--- NOTE | ~2018-09-27 | EKG ---
[place], [place] ELECTROCARDIOGRAM REPORT NAME: LO NEVES UNIT #: [id number] ROOM: DOCTOR: EPIPHANY DRAFT REPORT BIRTHDATE: [birth year] [facility] [place] Test Date: 2018-09-27 Test Time: 21:17:25 Pat Name: LO NEVES Department: Room: Gender: F System Architect: : 1940 Requested By: TAD BARNES Order Number: [id number] Reading MD: Measurements Intervals [place] Rate: 61 P: 53 SC: 138 QRS: -29 QRSD: 140 T: 91 QT: 457 QTc: 461 Interpretive Statements Sinus rhythm Left bundle branch block No previous ECG available for comparison CM:EKGRPT:ELECTROCARDIOGRAM REPORT 16 181 TAD WORKMAN DRAFT REPORT TAD BARNES MD
[~2018-09-27 20:46] MED LIST changes: +CELEXA20 MG PO; +DEPAKENE S250 MG/5 M PO; +VITAMIN D50000 UNIT PO
[2018-09-27 21:08] LABS: BASO % 0.7 % (0.0-1.0); EOS # 0.2 10*3/uL (0.0-0.4); EOS % 2.9 % (1.0-4.0); HEMATOCRIT 37.4 % (37.0-47.0); HEMOGLOBIN 12.8 g/dl (12.0-16.0); LYMPH # 1.7 10*3/uL (1.3-4.4); LYMPH % 31.3 % (27.0-41.0); MEAN CELL VOLUME 90.6 fl (81.0-99.0); MEAN CORPUSCULAR HGB CONC 34.2 g/dl (33.0-37.0); MEAN PLATELET VOLUME 9.4 fl (9.6-12.3); MONO # 0.6 10*3/uL (0.1-1.0); MONO % 11.4 % (3.0-9.0); NEUT % 53.5 % (47.0-73.0); PLATELET COUNT AUTOMATED 279 10*3/uL (130-400); RED BLOOD COUNT 4.13 10*6/uL (4.10-5.10); RED CELL DISTRI WIDTH 13.5 % (0-14.5); WHITE BLOOD COUNT 5.5 10*3/uL (4.8-10.8)
[2018-09-27 21:21] LABS: BILIRUBIN NEGATIVE (NEGATIVE); BLOOD NEGATIVE (NEGATIVE); CLARITY SL CLOUDY (CLEAR); COLOR YELLOW (YELLOW); GLUCOSE NEGATIVE (NEGATIVE); KETONE NEGATIVE (NEGATIVE); LEUKO ESTERASE NEGATIVE (NEGATIVE); NITRITE NEGATIVE (NEGATIVE); PH 6.5 (5.0-9.0); SPECIFIC GRAVITY 1.015 (1.005-1.030); UROBILINOGEN 0.2 E.U./dl (0.2-1.0)
[2018-09-27 21:27] LABS: ALBUMIN 3.4 gm/dl (3.1-4.5); ALKALINE PHOSPHATASE 89 U/L (45-117); BUN 23 mg/dl (7-24); CHLORIDE 106 mmol/L (98-107); CREATININE 0.72 mg/dL (0.55-1.02); POTASSIUM 3.8 mmol/L (3.5-5.1); SGOT/AST 19 IU/L (3-35); SGPT/ALT 29 U/L (12-78); SODIUM 141 mmol/L (136-145); TOTAL PROTEIN 6.6 gm/dL (6.4-8.2)
[2018-09-27 21:28] LABS: WBC 0-2 wbc/hpf (0-5)
[2018-09-27 21:29] LABS: ACETAMINOPHEN (TYLENOL) < 5.0 ug/ml (10-30); ETHYL ALCOHOL < 3.0 mg/dl (<3)
[2018-09-27 21:29] LABS: RBC 0-2 rbc/hpf (0-2); URINE AMPHETAMINES < 1000 (1000ng/ml); URINE BARBITURATES < 200 (200ng/ml); URINE BENZODIAZEPINES < 200 (200ng/ml); URINE CANNABINOIDS (THC) < 50 (50ng/ml); URINE COCAINE < 300 (300ng/ml); URINE METHADONE < 300 (300ng/ml); URINE OPIATES < 300 (300ng/ml); URINE PHENCYCLIDINE < 25 (25ng/ml)
[2018-09-27] MEDS ORDERED: DEPAKOTE SPRIN125 MG PO (23:13)
[2018-09-27] MEDS ORDERED: RIVASTIGMINE T1.5 M1 PO (23:16)
[2018-09-27] MEDS ORDERED: DEPAKENE S250 MG/5 M PO (23:18)
== END 2018-09-27 23:39 | disposition home health service (06) ==
LOC: ED 20:46
PROVIDERS: Emergency Medicine Emergency Medical Services
DX: F32.9 Major depressive disorder, single episode, unspecified (principal); F03.90 Unspecified dementia, unspecified severity, without behavioral disturbance, psychotic disturbance, mood disturbance, and anxiety; F63.81 Intermittent explosive disorder; E03.9 Hypothyroidism, unspecified; F23 Brief psychotic disorder; I11.0 Hypertensive heart disease with heart failure; I50.30 Unspecified diastolic (congestive) heart failure; Z86.73 Personal history of transient ischemic attack (TIA), and cerebral infarction without residual deficits; Z79.82 Long term (current) use of aspirin; Z79.899 Other long term (current) drug therapy

== ENCOUNTER 2019-05-14 16:03 | Inpatient (IN) | payer MEDICARE, OTHER ==
--- NOTE | ~2019-05-14 | PR ---
[place], [place] PROGRESS NOTE NAME: LO NEEVS UNIT #: [id number] ROOM: 315 DOCTOR: OVIDIO TAFOYA MD BIRTHDATE: [birth year] DOS: 05/16/2019 INTERVAL NOTE CHIEF COMPLAINT: "Oh, hi there." SUMMARY OF THE VISIT: The patient was interviewed as she was resting in bed. She awoke easily and engaged readily in conversation, smiling during the entire time. Nurses report that she still has periods of extreme mood lability with verbal and physical aggression often times without provocation. Outwardly, she is not exhibiting any side effects from the medications. No tardive dyskinesia, extrapyramidal symptoms, sedation or somnolence is noted. MENTAL STATUS: She is alert and oriented to person, possibly place, not to time. Mood does seem to be still labile. Affect at times inappropriate. Responses are short, simple, and at times inappropriate. Short term memory is very poor. PLAN: I will increase Risperdal M-Tab to 0.5 mg in the morning and 1 mg at bedtime. We will continue to engage in individual and alba milieu activity, returning to the least restrictive environment when psychiatrically stable. OVIDIO TAFOYA MD CM:PNTRANS [id number] OVIDIO TAFOYA MD 05/16/19 1034 interface
--- NOTE | ~2019-05-14 | PR ---
[place], [place] PROGRESS NOTE NAME: LO NEVES UNIT #: [id number] ROOM: 315 DOCTOR: OVIDIO TAFOYA MD BIRTHDATE: [birth year] DOS: 05/20/2019 INTERVAL NOTE CHIEF COMPLAINT: "Oh good morning." SUMMARY OF THE VISIT: The patient was interviewed in her bedroom. She was resting quietly in bed. As I knelt down and called her name, she opened her eyes and wished me good morning and smiled. There was no agitation, no aggression. There is no other significant symptomatology. MENTAL STATUS: She is alert and oriented to self, unclear place, certainly not time. Mood does seem to be much more euthymic. Affect is much more appropriate. There is no jody, hypomania or psychosis. Short term memory is problematic and she does process slowly. PLAN: I will continue her current psychotropic regimen, continue to engage in individual and alba milieu activity, returning to the least restrictive environment when psychiatrically stable. OVIDIO TAFOYA MD CM:PNTRANS [id number] OVIDIO TAFOYA MD 05/20/19 1129 interface
--- NOTE | ~2019-05-14 | PR ---
[place], [place] PROGRESS NOTE NAME: LO NEVES UNIT #: [id number] ROOM: 315 DOCTOR: OVIDIO TAFOYA MD BIRTHDATE: [birth year] DOS: 05/21/2019 INTERVAL NOTE CHIEF COMPLAINT: "That's for the other people, right." SUMMARY OF THE VISIT: The patient was interviewed as she was resting quietly in bed. It took me several times to call out her name for her to respond to me and then her responses did not make sense to the questions being asked. She was pleasant, however, and was not agitated or aggressive towards me. Nurses report that she does still resist care and can scratch and hit, especially during hands on care. MENTAL STATUS: She is alert and oriented to self, certainly not place or time. Mood this morning was fairly euthymic, but her responses were very short and simple. She lacks spontaneity and the appropriateness of her responses was very suspect. She does process conversation extremely slowly and short-term memory is very problematic. PLAN: I will continue her current psychotropic regimen, continue to engage in individual and alba milieu activity, returning to the least restrictive environment when psychiatrically stable. OVIDIO TAFOYA MD CM:PNTRANS [id number] OVIDIO TAFOYA MD 05/21/19 1016 interface
--- NOTE | ~2019-05-14 | WRIGHTHP ---
[place], [place] PATIENT HISTORY AND PHYSICAL EXAM NAME: LO NEVES UNIT #: [id number] ROOM: 314 DOCTOR: OVIDIO TAFOYA MD BIRTHDATE: [birth year] DOS: 05/15/2019 PSYCHIATRIC EVALUATION CHIEF COMPLAINT: The patient smiled and talked nonsensically. HISTORY OF PRESENT ILLNESS: This is an 78-year-old white female known to me from her stay at [facility] in [place], [place] as well as a previous admission here to the [facility]. The patient has become increasingly labile and agitated while at the group home, striking out and scratching peers and nurses repeatedly. The behaviors become problematic as she is putting others at significant risk of harm and has not redirecting. Of note, family notes that she gets stabilized on medications and when GDRs are attempted, she decompensates rapidly. She is admitted now to rule out organic factors, to stabilize on medication, returning to [place] when stable. PAST MEDICAL HISTORY: Remarkable for congestive heart failure, CVA, hypertension, hypothyroidism, vitamin D deficiency and major depression as well as Alzheimer's dementia. SOCIAL HISTORY: She does not smoke cigarettes, use illicit drugs or drink alcohol. ALLERGIES: She lists no known allergies. STRENGTHS: Supportive family, good verbal skills. WEAKNESSES: Cognitive decline, poor coping skills. MENTAL STATUS: She is alert and oriented to self, unclear place, certainly not time. Mood does seem to be rather labile. She smiles almost inappropriately and her responses are at times nonsensical. There was no agitation or aggression. There was no hypomania or jody. There were no auditory or visual hallucinations. No delusions, no paranoia. Short-term memory is poor and she processes slowly. DIAGNOSES: Intermittent explosive disorder and Alzheimer's dementia. PLAN: I will increase and change her Risperdal to an M-Tab formulation 0.5 b.i.d., maintain Exelon patch at 13.3 mg a day and Namenda 10 mg b.i.d. I may consider switching the Remeron to Celexa as the patient does have a history of being somewhat sexually inappropriate. We will monitor and support though engage in individual and alba milieu activity, returning to the least restrictive environment when psychiatrically stable. [place], [place] PATIENT HISTORY AND PHYSICAL EXAM NAME: LO NEVES UNIT #: [id number] ROOM: 314 DOCTOR: OVIDIO TAFOYA MD BIRTHDATE: [birth year] OVIDIO TAFOYA MD CM:HISPHYS:PATIENT HISTORY AND PHYSICAL EXAMINATION 0 3 OVIDIO TAFOYA MD 05/15/19913 interface
--- NOTE | ~2019-05-14 | PR ---
[place], [place] PROGRESS NOTE NAME: LO NEVES UNIT #: [id number] ROOM: 315 DOCTOR: KALINA SOLO DO BIRTHDATE: [birth year] DOS: 05/17/2019 PSYCHIATRIC PROGRESS NOTE CHIEF COMPLAINT: The patient does not communicate. She does smile and stares. SUMMARY VISIT: The patient interviewed while lying in her bed. After multiple times, the patient finally opened her eyes and smiled. She shakes her head no to wanting breakfast and then closes her eyes again and falls asleep. She otherwise does not communicate with us this morning. Per nursing staff, the patient slept greater than 6 hours last night; however, during the day, she did exhibit mild agitation and aggression when staff attempted to give her medications. By the night, though she was able to take her medications without difficulties or problems with staff. She also was noted to be isolating and withdrawing herself and did not participate in any group activities and wanted to stay in bed majority of the day. MENTAL STATUS EXAMINATION: She is alert and oriented to person only. Mental status examination is limited this morning due to the patient's lack of communication. PLAN: Continue current medication regimen. We will consider to increase the Risperdal if needed, but at this time, no changes. We will continue to monitor and support, engage in individual and alba milieu activity, returning to the least restrictive environment when psychiatrically stable. Kalina Solo DO OVIDIO TAFOYA MD CM:PNTRANS 6 [phone] KALINA SOLO DO 05/17/19 1036 interface
--- NOTE | ~2019-05-14 | PR ---
[place], [place] PROGRESS NOTE NAME: LO NEVES UNIT #: [id number] ROOM: 315 DOCTOR: VITOR XIONG CNP BIRTHDATE: [birth year] DOS: 05/18/2019 CHIEF COMPLAINT: "The patient's speech was nonsensical." SUMMARY OF THE VISIT: The patient was interviewed as she lie in her bed. The patient was sleeping whenever I entered; however, she aroused easily whenever I called her name. The patient's speech is nonsensical. She answers questions inappropriately. Staff reports that the patient did sleep last night. She has been taking medications as prescribed. Appetite has been fair. MENTAL STATUS EXAMINATION: The patient is alert and oriented to self. She was pleasant. No overt jody or hypomania noted. No delusions or paranoia noted. No psychotic symptoms noted. No auditory or visual hallucinations noted. The patient's mood was calm. No agitation or aggression noted at this time. The patient's affect is congruent with mood. PLAN: No change in the patient's medications at this time. We will continue to monitor for effectiveness and for side effects. We will consider increasing Risperdal if needed. Continue to encourage the patient to engage in individual and alba milieu activity. Continue fall and safety precautions. Plan to return the patient to the least restrictive environment when she is considered psychiatrically stable. Vitor Xiong CNP CM:PNTRANS VITOR XIONG CNP 05/18/19 0933 interface
--- NOTE | ~2019-05-14 | DS ---
[place], [place] DISCHARGE SUMMARY [id number] UNIT #: [id number] ROOM: 315 DOCTOR: OVIDIO TAFOYA MD BIRTHDATE: [birth year] DOS: 05/23/2019 CHIEF COMPLAINT: At the time of admission, the patient smiled and talked nonsensically. HISTORY OF PRESENT ILLNESS: This is an 78-year-old white female known to me from her stay at [facility] in [place], [place] as well as previous admissions here to the [facility] in [place], [place]. The patient had become increasingly labile and agitated [facility], striking out and scratching peers and nurses repeatedly. The patient's behavior has become problematic as she is putting herself and others at substantial risk of harm. Of note, family notes that she gets stabilize on medication and then GDRs are attempted and she decompensates rapidly. She is admitted now to rule out organic factors, to re-stabilize on medication, returning to [place] when psychiatrically stable. SUMMARY OF HOSPITAL COURSE: The patient was admitted to the unit where she was maintained on her Exelon patch 13.3 mg daily and Namenda 10 mg twice a day. The patient's Risperdal dose was increased in an effort to stabilize her mood lability and agitation. Risperdal was increased to 0.5 mg in the day and 1 mg at bedtime with excellent results as her behavior very quickly came under control. Remeron 15 mg at bedtime was added to combat depressive symptomatology aiding sleep and improving appetite. She responded to these medication changes dramatically and rapidly and her behavior improved. She was pleasantly confused for the most part, at times mildly resistant to care, but she was not striking out, scratching or doing any other harmful behaviors. She was not exhibiting sedation, somnolence, extrapyramidal symptoms or tardive dyskinesia and was well enough to return back to [place]. MENTAL STATUS AT DISCHARGE: The patient is alert and oriented to self only. Mood is euthymic. Affect appropriate. Responses are short, simple, at times nonsensical. No hypomania, jody or psychosis is noted. Short term memory is very problematic and she does have a great deal of processing difficulty. DIAGNOSES UPON DISCHARGE: Major depression, recurrent with psychotic features and Alzheimer's dementia, intermittent explosive disorder. PLAN: The patient is returning to [place] where I will be the treating psychiatrist of record. All of her medication list is being sent. It is strongly recommended that the patient does not have any further GDR as it has repeatedly been shown that she decompensates rapidly when a GDR is done. She requires both the Remeron and the Risperdal long-term to prevent relapse of the major depression, recurrent with psychotic features. [place], [place] DISCHARGE SUMMARY NAME: LO NEVES UNIT #: [id number] ROOM: [facility] DOCTOR: OVIDIO TAFOYA MD BIRTHDATE: [birth year] OVIDIO TAFOYA MD CM:DISCHARG [id number] OVIDIO TAFOYA MD 05/23/19 1024 interface
[~2019-05-14 16:03] MED LIST changes: +DEPAKOTE SPRIN125 MG PO; +RISPERIDONE M-TA1 MG BC; +RISPERIDONE0.5 MG PO; +RIVASTIGMINE T1.5 M1 PO
[2019-05-14] MEDS ORDERED: MELATONIN3 MG PO (23:44)
[2019-05-14] MEDS ORDERED: MIRTAZAPINE15 M2 PO (23:45)
[2019-05-14] MEDS ORDERED: RIVASTIGMINE1 EAC2 T (23:51)
[2019-05-14] MEDS ORDERED: RISPERDAL0.5 MG PO (23:53)
[2019-05-15 00:45] VITALS: BP 143/53
[2019-05-15 06:57] LABS: ALKALINE PHOSPHATASE 95 U/L (45-117); BUN 18 mg/dl (7-24); CHLORIDE 108 mmol/L (98-107); CHOLESTEROL 191 mg/dL (<200); CREATININE 0.65 mg/dL (0.55-1.02); HDL CHOLESTEROL 56 mg/dl (40-60); LDL CHOLESTEROL 113 mg/dL (9-159); SGOT/AST 14 IU/L (3-35); SGPT/ALT 18 U/L (12-78); SODIUM 142 mmol/L (136-145); TOTAL PROTEIN 6.1 gm/dL (6.4-8.2); TRIGLYCERIDES 110 mg/dl (<150); VLDL CHOLESTEROL 22 mg/dL (6-40)
[2019-05-15 07:39] VITALS: BP 130/76
[2019-05-15 19:56] VITALS: BP 125/75
[2019-05-16 08:04] VITALS: BP 135/69
[2019-05-16 20:00] VITALS: BP 118/68
[2019-05-17 07:44] VITALS: BP 121/70
[2019-05-17 19:36] VITALS: BP 118/76
[2019-05-18 07:37] VITALS: BP 118/72
[2019-05-18 20:00] VITALS: BP 123/72
[2019-05-19 07:06] VITALS: BP 127/65
[2019-05-19 19:57] VITALS: BP 128/68
[2019-05-20 07:55] VITALS: BP 119/67
[2019-05-20 20:00] VITALS: BP 116/68
[2019-05-21 07:41] VITALS: BP 130/68
[2019-05-21 20:00] VITALS: BP 118/88
[2019-05-22 07:32] VITALS: BP 143/75
[2019-05-22 19:47] VITALS: BP 128/72
[2019-05-23 07:52] VITALS: BP 116/64
[2019-05-23] MEDS ORDERED: RISPERIDONE M-TA1 MG BC (09:30)
[2019-05-23] MEDS ORDERED: RISPERIDONE M-0.5 MG BC (09:30)
[2019-05-23] MEDS ORDERED: LISINOPRIL10 M1 PO (09:59)
== END 2019-05-23 15:49 | DRG 883 ==
LOC: 3N 16:03
PROVIDERS: ADMIT Psychiatry & Neurology Psychiatry
DX: F63.81 Intermittent explosive disorder (principal); E44.1 Mild protein-calorie malnutrition; F01.51 Vascular dementia, unspecified severity, with behavioral disturbance; F33.1 Major depressive disorder, recurrent, moderate; I50.32 Chronic diastolic (congestive) heart failure; Z68.44 Body mass index [BMI] 60.0-69.9, adult; F02.81 Dementia in other diseases classified elsewhere, unspecified severity, with behavioral disturbance; G30.9 Alzheimer's disease, unspecified; E87.8 Other disorders of electrolyte and fluid balance, not elsewhere classified; I11.0 Hypertensive heart disease with heart failure; E03.9 Hypothyroidism, unspecified; E55.9 Vitamin D deficiency, unspecified; Z86.73 Personal history of transient ischemic attack (TIA), and cerebral infarction without residual deficits; Z79.899 Other long term (current) drug therapy